=== PATIENT | female | born 1950 | race Caucasian/White ===

== ENCOUNTER 2017-02-04 05:51 | Inpatient (IN) | payer MEDICARE ==
[2017-01-21 11:52] VITALS: BP 120/80
--- NOTE | 2017-01-31 13:10 | HPE ---
DATE OF ADMISSION: 02/04/2017 CHIEF COMPLAINT: Back pain and pain radiating to both lower extremities, right greater than the left. HISTORY: This is a pleasant 66-year-old female patient with progressively worsening back pain and pain radiating to both lower extremities. She has failed to improve with physical therapy, epidural steroid injections, nonsteroidal antiinflammatory drugs (NSAIDs), activity modification. She continues have symptoms with normal day-to-day activities. She has troubles sitting, standing and also activities such as riding in a car are very difficult for her. It affects her sleep. She has elected for surgery for continued symptoms. She has consented for a right unilateral laminectomy at 3-4 and 4-5 and posterior lateral fusion at L3-4 and L4-[address] Scott[address] MRI of her lumbar spine notable for severe stenosis at 4-5, slightly to a lesser degree at 3-4. X-rays are notable for dynamic spondylolisthesis at L4-5. There is also degenerative changes at 3-4 and 4-5 and to a lesser degree at 5-1. There is a mild degenerative scoliotic curve also noted on the radiographs. Medical optimization Dr. Ho. ALLERGIES: She does have difficulties with most all tape products. 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 CURRENT MEDICATIONS: - valsartan 50 mg one tablet once per day - calcium 500 mg one tablet once per day - Flexeril 10 mg one tablet as needed - Protonix 40 mg one tablet once per day - Naproxen 500 mg as needed twice a day - Zoloft 50 mg half of a tablet once per day - over the counter vitamin D3 MEDICAL HISTORY: Includes aortic abdominal dilation at 2.8 cm, elevated lipids, anxiety, gastric reflux disease, hypertension, as well as spinal stenosis and lumbar spondylolisthesis. PAST SURGICAL HISTORY: Includes tonsils and adenoids removed, hernia repair, bladder surgery, bilateral carpal tunnel release, ulnar nerve decompression on the left. SOCIAL HISTORY: She does not smoke. She does not use alcohol. She is retired. FAMILY HISTORY: Noncontributory. REVIEW OF SYSTEMS: Denies fever or chills. Denies chest pain, shortness breath or cough. Denies difficulty breathing. Denies abdominal pain. Denies nausea or vomiting. Denies recent upper respiratory infection or urinary tract infection (UTI) symptoms. Notes persistent pain in her back, mainly down her right leg and also at times down her left leg. PHYSICAL EXAMINATION: Physical exam today reveals a well-nourished, well-developed, alert female patient. She ambulates with a slow gait. Her gait is not wide-based. She does not use assistive devices. Her mood and affect are appropriate for the situation. There is some diffuse tenderness around the lumbar spine. The skin is intact. No erythema, edema or ecchymosis. Straight leg raise testing is negative on exam. Clonus is negative. Deep tendon reflexes are 1 at the knees and trace at the ankles. Sensation is grossly intact on exam today. Neck is supple without adenopathy or jugular venous distention (JVD). LUNGS: Clear to auscultation without rales or wheeze. HEART: Regular rate and rhythm. ABDOMEN: Bowel sounds are present. CURRENT VITAL SIGNS: Weight 203 pounds, height 5 feet 11 inches, Body Mass Index (BMI) 38, temperature 97.9, pulse 88, respirations 20, blood pressure 152/90. Medical optimization completed by Dr. Ho. LABORATORY DATA: Chest x-ray: No acute cardiopulmonary process noted. EKG sinus bradycardia. Nasal cultures: Normal ameya. PT 13.7, INR 1.04, hemoglobin 14.3, glucose 91, BUN 13, creatinine 0.81, sodium 142, potassium 4.2. IMPRESSION: 1. Lumbar spinal stenosis, bilateral leg symptoms, right greater than left. 2. Spondylolisthesis of the lumbar spine. PLAN: She has consented for right unilateral laminectomy at L3-4 and L4-5 with posterolateral fusion at L3-4 and L4-5 with the use of iliac crest bone graft and donor bone graft. PEEWEE
[2017-02-04] VITALS (7 sets, daily range): BP systolic 98–126; BP diastolic 60–66; O2SAT 97
[~2017-02-04] VITALS: Ht 154.9 cm; Wt 93.3 kg
[~2017-02-04 05:51] MED LIST: ASPE10LO TOP; CALCCHW19 PO; CENTTAB PO; CHO PO; CYCL10TA PO; DIGE1CHW PO; GABA-279 PO; GLUC PO; HYDR12CA PO; LIDO5DIS41 TD; OMEGA PO; PANT40TA2 PO; SERT50TA PO; TYLE650T35 PO; VALS1TAB46 PO; VITA100067 PO; VITA500T PO
[2017-02-04] MEDS ORDERED: LR 1,000 ML IV ONE (06:15)
[2017-02-04] MEDS ORDERED: LIDOCAINE 1% MDV 20ML VIAL SQ PRN (06:15)
[2017-02-04] MEDS ORDERED: PREGABALIN 75 MG CAP(LYRICA) PO ONE (06:15)
[2017-02-04] MEDS ORDERED: PERCOCET 5MG/325MG TAB PO ONE (06:15)
[2017-02-04] MEDS ORDERED: BUPIVACAINE/EPIN 0.25% 30 ML VIAL As Ordered ONE (07:14)
[2017-02-04] MEDS ORDERED: THROMBIN SOLN 20,000 UNITS KIT As Ordered ONE (07:14)
[2017-02-04] MEDS ORDERED: BACITRACIN PWD 50,000 UNITS VIAL As Ordered ONE (07:14)
[2017-02-04] MEDS ORDERED: BACITRACIN OINT 30GM As Ordered ONE (08:06)
[2017-02-04] MEDS ORDERED: MIDAZOLAM INJ 2 MG/2 ML VIAL (J2250) As Ordered ONE (08:11)
[2017-02-04] MEDS ORDERED: fentaNYL 250 MCG/5 ML INJECTION (J3010) As Ordered ONE (08:11)
[2017-02-04] MEDS ORDERED: PHENYLEPHRINE INJ 10MG/ML VIAL (J2370) As Ordered ONE ×2 (08:11→11:27)
[2017-02-04] MEDS ORDERED: PROPOFOL 200 MG/20 ML VIAL As Ordered ONE (08:23)
[2017-02-04] MEDS ORDERED: ePHEDrine SULFATE 25 MG/5 ML(5MG/ML) SYRINGE As Ordered ONE ×2 (08:23→10:49)
[2017-02-04] MEDS ORDERED: PHENYLephrine HCL 500 MCG/5 ML (100MCG/ML) SYRINGE (J2370) As Ordered ONE (08:23)
[2017-02-04] MEDS ORDERED: GLYCOPYRROLATE INJ 0.2 MG/ML 2 ML VIAL As Ordered ONE (08:23)
[2017-02-04] MEDS ORDERED: LIDOCAINE 2% INJ 100 MG/5 ML SDV (FOR ANES.) As Ordered ONE (08:23)
[2017-02-04] MEDS ORDERED: NEOSTIGMINE 10 MG/10 ML VIAL (J2710) As Ordered ONE (08:23)
[2017-02-04] MEDS ORDERED: ROCURONIUM BROMIDE 50 MG/5 ML VIAL/SYRINGE As Ordered ONE ×2 (08:23→09:18)
[2017-02-04] MEDS ORDERED: METOCLOPRAMIDE INJ 10MG/2ML VIAL (J2765) As Ordered ONE (08:24)
[2017-02-04] MEDS ORDERED: ONDANSETRON 4MG/2ML VIAL (J2405) As Ordered ONE (08:24)
[2017-02-04] MEDS ORDERED: TRANEXAMIC ACID 100 MG/ML 10ML VIAL As Ordered ONE (09:52)
[2017-02-04] MEDS ORDERED: EPINEPHrine INJ 1 MG/ML 1ML AMP As Ordered ONE (09:53)
[2017-02-04] MEDS ORDERED: ceFAZolin 2 GM/D5W 50 ML IV BAG (J0690) As Ordered ONE (12:04)
[2017-02-04] MEDS ORDERED: VANCOMYCIN 1000 MG/20 ML VIAL (J3370) As Ordered ONE (12:04)
[2017-02-04] MEDS ORDERED: HYDROmorphone HCL 2 MG/ML 1ML VIAL (J1170) As Ordered ONE (13:16)
[2017-02-04] MEDS ORDERED: BUPIVACAINE HCL 0.5% 30 ML VIAL As Ordered ONE (14:08)
[2017-02-04] MEDS ORDERED: BUPIVACAINE LIPOSOME/PF 1.3% 20 ML VIAL (13.3MG/ML)(EXPAREL) As Ordered ONE (14:09)
--- NOTE | 2017-02-04 15:21 | REP ---
PARTIAL LUMBAR SPINE SERIES: Three views. HISTORY: Laminectomy. 2 minutes of fluoroscopy time is reported. FINDINGS: A sequence of two last image hold fluoroscopic spot radiographs of the lower lumbar spine document a transpedicular screw and interconnecting conner fusion bilaterally from L3-L5. A additional portable cross-table lateral radiograph demonstrates operative probes in the dorsal soft tissues about the L4-5 level. Signed by Laurent Montoya MD 02/04/2017 03:44 P
[2017-02-04] MEDS: D5W/0.45% SODIUM CHLORIDE 1,000 ML IV SCH (16:15)
[2017-02-04] MEDS ORDERED: LR 1,000 ML IV SCH (16:15)
[2017-02-04] MEDS ORDERED: MORPHINE 2 MG/ML 1ML SYRINGE IV PRN (16:15)
[2017-02-04] MEDS ORDERED: ONDANSETRON 4MG/2ML VIAL (J2405) IV PRN (16:15)
[2017-02-04] MEDS ORDERED: HYDROmorphone HCL 1 MG/ML SYRINGE (J1170) IV PRN ×2 (16:30)
[2017-02-04] MEDS ORDERED: PROMETHAZINE INJ 25 MG/ML VIAL (J2550) IV PRN (16:30)
[2017-02-04] MEDS: GABAPENTIN 100 MG CAP PO SCH (20:44)
[2017-02-04] MEDS: PERCOCET 5MG/325MG TAB PO PRN (20:45)
[2017-02-05 00:39] VITALS: BP 117/59
[2017-02-05] MEDS: D5W/0.45% SODIUM CHLORIDE 1,000 ML IV SCH ×3 (02:15→22:15)
[2017-02-05] MEDS: PERCOCET 5MG/325MG TAB PO PRN ×4 (02:35→19:46)
[2017-02-05 04:30] VITALS: BP 124/66
[2017-02-05] MEDS: GABAPENTIN 100 MG CAP PO SCH ×3 (09:44→20:57)
[2017-02-05] MEDS: SERTRALINE HCL 25 MG TABLET PO SCH (09:44)
[2017-02-05] MEDS: MULTIVITAMINS/MINERALS THERAP 1 TAB PO SCH (09:44)
[2017-02-05 10:00] VITALS: BP 95/47
[2017-02-05 10:55] VITALS: O2SAT 95
[2017-02-05 14:00] VITALS: BP 103/53
--- NOTE | 2017-02-05 17:33 | RO ---
DATE OF PROCEDURE: 02/04/2017 PREPROCEDURE DIAGNOSIS: Lumbar spinal stenosis, L3-4, L4-5 and lumbar spondylolisthesis L4-5 with primarily right lower extremity radicular and neurogenic claudication. POSTPROCEDURE DIAGNOSES: Lumbar spinal stenosis, L3-4, L4-5 and lumbar spondylolisthesis L4-5 with primarily right lower extremity radicular and neurogenic claudication. PROCEDURE PERFORMED: Right unilateral laminectomy L3-4-5 and posterior intertransverse lumbar fusion L3-L4-L5 and instrumentation. SURGEON: Pedro Scott MD GRAPHICS MANAGER: Darryl Moore PA-C ANESTHESIA: General. ESTIMATED BLOOD LOSS: 800 mL REPLACED: Crystalloid. COMPLICATIONS: None. SPECIFIC COMPONENTS: L3 right unilateral laminectomy for decompression of the thecal sac exiting and traversing nerve root, L4 right unilateral laminectomy for decompression of the thecal sac exiting and traversing nerve root additional level, L5 right unilateral laminectomy for decompression of the thecal sac exiting and traversing nerve root. L3-4 arthrodesis intertransverse type, L4-5 arthrodesis intertransverse type. Next was posterior segmental instrumentation L3, L4 and L5 pedicle screw instrumentation, harvest and placement of right iliac crest bone graft through a separate fascial incision, harvest and placement of local autograft for spine surgery morselized. INDICATIONS: Predominantly right lower extremity discomfort, spondylolisthesis at L4-5 and spinal stenosis at L3-4 and L4-5. The patient has elected for operative intervention. Consent reviewed in detail including a nahed discussion of the pathology involved, the procedure proposed, alternatives including doing nothing, risks including but not limited to pain, failure, infection, bleeding, blood loss, incomplete relief of symptoms, need for additional surgery, nerve injury, blood clots, and other issues. The patient agrees to proceed with surgery. COMPONENTS USED: Include K2M [place] pedicle screw instrumentation at L3, L4 and L5. a 60 mm connecting conner stem cap. The screws were 6.5 screws the appropriate length at L3 bilaterally, L4 bilaterally, L5 on the left. I used a 7.5 screw at L5 on the right. DESCRIPTION OF PROCEDURE: Identified in the holding area, site and side verified, brought to the operating room. General endotracheal anesthesia was administered. Positioned for exposure of the lumbar spine in the prone position on the Zechariah frame. Once I and the manager secondary were comfortable with the patient's positioning, she was then sterilely prepped and draped in the usual fashion. Next, line of the incision was outlined with a marking pen, infiltrated with 0.25% Marcaine with epinephrine. Time-out was accomplished. I stood initially on the patient's right side, Mr. Moore on the left side and initially a utilized 3.5 loupe magnification, however, this was changed out for the operative microscope at the appropriate stage in the procedure. Next, I made the incision with a #10 blade knife developed down through skin and subcuticular tissues to the posterior lumbar fascia. The posterior lumbar fascia was reflected off of the spinous processes of L3, L4 and L5. The dissection continued down to the L4 and L5 lamina. Next, I used the high-speed bur to drill a divot in the posterior lamina on the right side at L4 and L5 and placed a radiopaque probe in the lamina. Next, we obtained a cross-table lateral x-ray to localize our markers and confirm our levels. Next, based on this x-ray we continued dissection superiorly to expose the L3 transverse process. Next, we switched sides. Mr. Moore utilized Renzo retractors and the dissection continued over the transverse process of 3, 4 and 5 exposing them on the patient's right side. Next, I then packed the right side with a laminectomy tail, turned attention to the exposure of the left side. Soft tissue was reflected from the spinous processes, preserving the interspinous ligament on the left out over the lamina of L3, L4 and L5 and hemostasis was accomplished using bipolar cautery. Next, at this stage we again switched sides. Mr. Moore utilized Renzo retractors on the left then I finished the dissection out over the transverse processes at L3, L4 and L5 on the patient's left side. This side was packed with FloSeal and laminectomy tail for hemostasis. Hemostasis also achieved using bipolar cautery. Next, at this stage my loupe magnification removed and the operating microscope was brought in for additional portions of the procedure. Next, in this patient dissection took considerably longer time then in someone that did not have a body mass index of 38. This patient's body mass index of 38 required additional positioning time, effort and additional time and effort invested in implementing the dissection and exposure. Next, the high-speed bur using the microscope was utilized to implement a laminectomy. This is a right unilateral laminectomy that undercut the spinous processes of 3, 4 and 5, continuing inferiorly the bare area of L5, but not entirely through the lamina of 5. I did undercut the spinous process of 5 laterally extending to the medial 50% of the facet complexes, but preserving the pars interarticularis. Superiorly, did touch the inferior lamina of L2 to allow exposure of the right pedicle for palpation with the Hurd Vinay probe for screw placement later. Next, once the bony dissection was accomplished and we did collect bur milling using a AQS trap, we then elevated the remaining ligamentum flavum from the bare areas removed it using pituitaries, curettes and #2 and #3 Kerrisons. Over the horizon decompression was accomplished using the #2 and #3 Kerrisons as well at the patient's left side, especially at 3, 4 on the left side. Next, lateral recess decompression was accomplished on the right using a Hurd Vinay as well as curettes and verification using the Hurd Vinay. Next, Kerrisons were utilized to finish the right lateral recess decompression. Next, the neural foramina were able to be probed on the patient's right side at 3, 4 and 4, 5. Next, once the right unilateral laminectomy was accomplished we irrigated and placed thrombin Gelfoam in the lateral recess on the right. Next, at this stage we turned our attention to obtaining iliac crest bone graft. We switched sides and I obtained iliac crest bone graft morselized through right iliac crest through a separate fascial incision. Once the bone graft was obtained, it was protected. I sprinkled a small amount of vancomycin crystals over the bone graft and covered it. Next, we closed the iliac crest wound with thrombin Gelfoam followed by interrupted stitch over the fascial layer. Next, once this was accomplished we implemented pedicle screw placement. We began this on the patient's left side. I stood on the patient's right side, Toya Teresa assisted with Renzo retractors to expose the transverse process in the pedicles. I drilled the pedicles using the high-speed drill as the mammillary process. For this portion of the procedure I had scrubbed out, changed into lead garments, scrubbed back in. The microscope was not utilized for this portion of the procedure; it was accomplished using 3.5 loupe magnification. Next, C-arm was utilized. Next, the pedicles were drilled in the following fashion: left pedicle L5, drilled the mammillary process placed. Pedicle finder probe visualized AP plane, followed by visualized lateral plane. Probe advanced through the pedicle into the vertebral body of L5, ball tip guidewire utilized to probe the vertebral body and pedicle tract. 5.5 tap utilized to tap. Ball tip guidewire utilized to verify pedicle track along with fluoroscopy and placement of the appropriate length 6.5 screw at the left at L5. Additional levels L4 and L3 pedicles were accessed in a similar fashion including verification with fluoroscopy in the AP and lateral plane. Next, once this was accomplished, Mr. Moore retracted with the Renzo retractor exposing the transverse processes, which were decorticated using the high-speed bur and I placed iliac crest bone graft directly over the transverse processes of L4-5 and L3 followed by placement of the local graft mixed with crushed cancellus bone graft and demineralized bone matrix putty. Next, 60 mm connecting conner was placed, end caps were placed and locked into place using the torque counter torque device. 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 I did elect to place a 7.5 screw in this large osteoporotic pedicle for more stability. The right L4 and right L3 pedicles were opened, cannulated, tapped, probed and the screws measured and placed in a similar fashion, 6.5 screws at L4, 6.5 screws at L3. Next, once this was accomplished again we placed the iliac crest bone graft over the decorticated transverse processes of 3, 4 and 5 followed by placement of the local and crushed cancellus and demineralized bone matrix putty. I then placed the connecting conner end caps, which were locked with the torque counter torque device. Also we had irrigated prior to placement of bone graft. Next, vancomycin crystals sprinkled. Next, we explored the wound again inspected the thecal sac. No active bleeding was appreciated. No CSF leaks were appreciated. Next 40 mL of TXA hemostatic solution were placed within the wound after irrigation. This was allowed to stand for approximately 1 minute. Next, once this was accomplished, all counts were appreciated be correct, there was no active bleeding appreciated. Next, at the conclusion of the case approximately 60 mL of Exparel solution mixed with Marcaine and saline solution were injected in the paraspinal soft tissues as a pain control agent. This was accomplished bilaterally. Next, once this was accomplished, the wound was inspected for bleeding. No active bleeding was appreciated. Next, posterior fascia was approximated with interrupted stitch, deep dermis was approximated with interrupted stitch. Prineo dressing was utilized on skin. The patient log-rolled to hospital bed, extubated, moved to recovery room in good condition. Again, the patient's body mass index of 38 necessitated significant additional time and difficulty for the completion of this type of surgery. For further details please refer to medical record.
[2017-02-05 22:00] VITALS: BP 93/40
[2017-02-06] VITALS (7 sets, daily range): BP systolic 91–114; BP diastolic 49–64; O2SAT 94–95
[2017-02-06] MEDS: PERCOCET 5MG/325MG TAB PO PRN ×4 (01:38→21:02)
[2017-02-06] MEDS: D5W/0.45% SODIUM CHLORIDE 1,000 ML IV SCH (08:15)
[2017-02-06] MEDS: GABAPENTIN 100 MG CAP PO SCH ×3 (08:26→21:01)
[2017-02-06] MEDS: CYCLOBENZAPRINE 10 MG TAB PO PRN ×3 (08:26→21:02)
[2017-02-06] MEDS: MULTIVITAMINS/MINERALS THERAP 1 TAB PO SCH (08:26)
[2017-02-06] MEDS: SERTRALINE HCL 25 MG TABLET PO SCH (08:26)
[2017-02-06] MEDS ORDERED: NS 500 ML IV ONE (08:30)
[2017-02-06 08:32] LABS: MEAN CORPUSCULAR HEMOGLOBIN 29.4 pg (27.0-33.0); MEAN CORPUSCULAR HGB CONC 32.2 g/dl (32.0-36.5); MEAN CORPUSCULAR VOLUME 91.4 fl (80.0-96.0); PLATELET COUNT, AUTOMATED 176 10^3/uL (150-450); RED CELL DISTRIBUTION WIDTH 13.6 % (11.5-14.5); WHITE BLOOD COUNT 12.3 10^3/uL (4.0-10.0)
[2017-02-06] MEDS ORDERED: BISACODYL 10 MG SUPP PR ONE (08:45)
[2017-02-06 08:56] LABS: ANION GAP 7 MEQ/L (8-16); BLOOD UREA NITROGEN 10 MG/DL (7-18); CALCIUM LEVEL 8.3 MG/DL (8.8-10.2); CARBON DIOXIDE LEVEL 28 MEQ/L (21-32); CHLORIDE LEVEL 105 MEQ/L (98-107); CREATININE FOR GFR 0.65 MG/DL (0.55-1.02); GLOMERULAR FILTRATION RATE > 60.0 (>45); GLUCOSE, FASTING 103 MG/DL (80-110); POTASSIUM SERUM 3.7 MEQ/L (3.5-5.1); SODIUM LEVEL 140 MEQ/L (136-145)
[2017-02-06] MEDS: SENOKOT S TAB PO SCH ×2 (09:26→21:02)
[2017-02-06] MEDS: MIRALAX *UNIT DOSE* 17GM PACKET PO SCH (09:26)
[2017-02-06] MEDS: MOM 30ML SUSPENSION UDC PO SCH (09:26)
--- NOTE | 2017-02-06 11:09 | IPNPDOC ---
Subjective Date Seen The patient was seen on 02/06/17. Subjective Chief Complaint/HPI Patient seen and examined at the bedside. She is tearful and emotional this morning, as she states that she was expecting her lower back pain to be much better after her surgical operation. Does not offer any specific acute complaints at this time. Objective Physical Examination General Exam: Positive: Alert, Cooperative, Other (tearful) ENT Exam: Positive: Atraumatic, Mucous membr. moist/pink Neck Exam: Negative: JVD Chest Exam: Positive: Clear to auscultation, Normal air movement Heart Exam: Positive: Rate Normal, Normal S1, Normal S2 Abdomen Exam: Positive: Soft, Negative: Tenderness Extremity Exam: Negative: Tenderness, Swelling Skin Exam: Positive: Other skin issue (surgical incision in the lumbar area noted to be clean, dry, and intact.) Psych Exam: Positive: Oriented x 3 Assessment /Plan Plan/VTE VTE Prophylaxis Ordered?: Yes Disposition Spinal Stenosis s/p Right unilateral laminectomy L3-4-5 and posterior intertransverse lumbar fusion L3-L4-L5 and instrumentation on 02/04/17 Pain management and DVT prophylaxis as per spinal surgery Hypertension The patient's blood pressure has been running borderline low, we will hold antihypertensives at this time Normyctic Anemia Hgb level has dropped from 14.3 on 01/21 lab work to 9.6 this AM Likely a component of surgical blood loss (800 cc's as per report) and Dilutional anemia as the patient has received over 4L of IVF during hospitalization No active signs of bleeding noted We Will recheck Hgb levels in the AM Patient with no anemia related c/o chest pain, SOB, palpitations or appearance of pallor No indication for transfusion at this time We will continue to monitor GERD Continue Protonix Anxiety Continue Zoloft Morbid obesity Complicating medical care DVT prophylaxis Would consider SC Heparin/Lovenox--Will defer to surgical service VS, I&O, 24H, Fishbone Vital Signs/I&O Vital Signs Date Time Temp Pulse Resp B/P (MAP) Pulse Ox O2 Delivery O2 Flow Rate FiO2 02/06/17 09:26 18 02/06/17 08:38 Room Air 02/06/17 08:19 91/49 (63) 02/06/17 06:00 98.2 90 97 2.0 I&O- Last 24 Hours up to 6 AM 02/07/17 06:00 Intake Total 480 ml Output Total 200 ml Balance 280 ml Laboratory Data 24H LABS Laboratory Tests 2 02/06/17 08:22: Nucleated Red Blood Cells % (auto) 0.0, Anion Gap 7L, Glomerular Filtration Rate > 60.0, Blood Urea Nitrogen 10, Creatinine 0.65, Sodium Level 140, Potassium Level 3.7, Chloride Level 105, Carbon Dioxide Level 28, Calcium Level 8.3L, Magnesium Level 2.0 CBC/BMP Laboratory Tests 02/06/17 08:22 Red Blood Count 3.26 L, Mean Corpuscular Volume 91.4, Mean Corpuscular Hemoglobin 29.4, Mean Corpuscular Hemoglobin Concent 32.2, Red Cell Distribution Width 13.6, Calcium Level 8.3 L ERNESTO NEWBERRY MD Feb 06, 2017 11:09
--- NOTE | 2017-02-06 12:28 | REP ---
AP LATERAL LUMBAR SPINE: 02/06/2017. Comparison: Intraoperative image 02/04/2017. Clinical history: Status post posterior lumbar fusion L3-L5. Pedicle screws and arch bars on each side from L3-L5. A few millimeters of anterolisthesis of L4 on 5 are noted, similarly a few millimeters of anterolisthesis of L3 on 4 noted. No compression deformity in the spine. There are marginal osteophytes throughout. SI joints, sacral ala and foramina were intact. Very mild levorotation without scoliosis on the AP view. Some degenerative changes in the upper lumbar and lower thoracic spine and hips. Impression: 1. L3-L5 posterior fusion with pedicle screws and arch bars on each side and a few millimeters of anterolisthesis of L3 on L4 and L4 on L5. Signed by Dequan Walker MD 02/06/2017 01:29 P
[2017-02-06] MEDS ORDERED: SODIUM CHLORIDE 0.9% 1000 ML IV ONE (13:30)
[2017-02-06] MEDS: PANTOPRAZOLE 40MG TAB (PROTONIX) PO SCH ×2 (13:35→21:02)
[2017-02-07] MEDS: PERCOCET 5MG/325MG TAB PO PRN ×3 (02:22→20:06)
[2017-02-07 06:00] VITALS: BP 97/55
[2017-02-07 07:01] LABS: MEAN CORPUSCULAR HEMOGLOBIN 29.6 pg (27.0-33.0); MEAN CORPUSCULAR HGB CONC 32.2 g/dl (32.0-36.5); PLATELET COUNT, AUTOMATED 187 10^3/uL (150-450); RED CELL DISTRIBUTION WIDTH 13.7 % (11.5-14.5)
[2017-02-07 07:18] LABS: ANION GAP 6 MEQ/L (8-16); BLOOD UREA NITROGEN 9 MG/DL (7-18); CARBON DIOXIDE LEVEL 30 MEQ/L (21-32); CHLORIDE LEVEL 107 MEQ/L (98-107); CREATININE FOR GFR 0.64 MG/DL (0.55-1.02); GLOMERULAR FILTRATION RATE > 60.0 (>45); GLUCOSE, FASTING 99 MG/DL (80-110); POTASSIUM SERUM 3.8 MEQ/L (3.5-5.1); SODIUM LEVEL 143 MEQ/L (136-145)
[2017-02-07 07:19] LABS: CALCIUM LEVEL 8.4 MG/DL (8.8-10.2); MAGNESIUM LEVEL 2.4 MG/DL (1.8-2.4)
[2017-02-07] MEDS: SENOKOT S TAB PO SCH ×2 (08:37→20:05)
[2017-02-07] MEDS: ASPIRIN 325 MG TAB PO SCH (08:37)
[2017-02-07] MEDS: MULTIVITAMINS/MINERALS THERAP 1 TAB PO SCH (08:37)
[2017-02-07] MEDS: GABAPENTIN 100 MG CAP PO SCH ×3 (08:37→20:06)
[2017-02-07] MEDS: SERTRALINE HCL 25 MG TABLET PO SCH (08:37)
[2017-02-07] MEDS: CYCLOBENZAPRINE 10 MG TAB PO PRN ×2 (08:37→20:05)
[2017-02-07] MEDS: PANTOPRAZOLE 40MG TAB (PROTONIX) PO SCH ×2 (08:37→20:05)
[2017-02-07] MEDS: MIRALAX *UNIT DOSE* 17GM PACKET PO SCH (08:37)
[2017-02-07] MEDS: MOM 30ML SUSPENSION UDC PO SCH (08:37)
[2017-02-07] MEDS ORDERED: TRIAMCINOLONE ACETONIDE SUSP 40 MG/ML VIAL (J3301) IA ONE (09:00)
[2017-02-07] MEDS ORDERED: PERC5TAB12 PO (09:09)
[2017-02-07] MEDS ORDERED: ASPI325T PO (09:09)
[2017-02-07 14:00] VITALS: BP 121/58
--- NOTE | 2017-02-07 18:48 | IPNPDOC ---
Text Note Date of Service The patient was seen on 02/07/17. NOTE Patient seen and examined at the bedside. reported hip and LE pain. Denied sob, chest pain General Exam: Positive: Alert, Cooperative, Other (tearful) ENT Exam: Positive: Atraumatic, Mucous membr. moist/pink Neck Exam: Negative: JVD Chest Exam: Positive: Clear to auscultation, Normal air movement Heart Exam: Positive: Rate Normal, Normal S1, Normal S2 Abdomen Exam: Positive: Soft, Negative: Tenderness Extremity Exam: Negative: Tenderness, Swelling Skin Exam: Positive: Other skin issue (surgical incision in the lumbar area noted to be clean, dry, and intact.) Psych Exam: Positive: Oriented x 3 66 F h/o AAA 2.8 cm, HLD, GERD anxiety HTN spinal stenosis and lumbar spondylolisthesis admitted under ortho for right unilateral laminectomy L3-4-5 and posterior intertransverse lumbar fusion L3-L4-L5 and instrumentation on 02/04/17 Spinal Stenosis s/p Right unilateral laminectomy L3-4-5 and posterior intertransverse lumbar fusion L3-L4-L5 and instrumentation on 02/04/17 Pain management , periop as per orthoand DVT prophylaxis as per spinal surgery, activity and pt as per surgery Hypertension The patient's blood pressure has been running borderline low, we will hold antihypertensives at this time Normyctic Anemia Hgb level has dropped from 14.3 on 01/21 lab work to 9.6 this AM Likely a component of surgical blood loss (800 cc's as per report) and Dilutional anemia as the patient has received over 4L of IVF during hospitalization No active signs of bleeding noted f/u hh Patient with no anemia related c/o chest pain, SOB, palpitations or appearance of pallor No indication for transfusion at this time We will continue to monitor GERD Continue Protonix Anxiety c/w med htn hold bp med given orderline pressure Morbid obesity Complicating medical care DVT prophylaxis Would consider SC Heparin/Lovenox--Will defer to surgical service scd teds ordered as per surgery VS,Jenniffer, I+O VS, Fishfrancheskae, I+O Laboratory Tests 02/07/17 06:36 Red Blood Count 2.87 L, Mean Corpuscular Volume 92.0, Mean Corpuscular Hemoglobin 29.6, Mean Corpuscular Hemoglobin Concent 32.2, Red Cell Distribution Width 13.7, Calcium Level 8.4 L Vital Signs Date Time Temp Pulse Resp B/P (MAP) Pulse Ox O2 Delivery O2 Flow Rate FiO2 02/07/17 14:00 98.4 91 16 121/58 (79) 96 Room Air 02/07/17 07:54 2.0 FIDELINA ZAYAS MD Feb 07, 2017 18:48
[2017-02-07 20:08] VITALS: O2SAT 96
[2017-02-07 22:00] VITALS: BP 105/51
[2017-02-08] MEDS: PERCOCET 5MG/325MG TAB PO PRN ×2 (02:31→18:28)
[2017-02-08] MEDS: CYCLOBENZAPRINE 10 MG TAB PO PRN (02:31)
[2017-02-08 06:00] VITALS: BP 117/56
[2017-02-08 07:48] LABS: MEAN CORPUSCULAR HEMOGLOBIN 29.3 pg (27.0-33.0); MEAN CORPUSCULAR HGB CONC 31.7 g/dl (32.0-36.5); MEAN CORPUSCULAR VOLUME 92.4 fl (80.0-96.0); PLATELET COUNT, AUTOMATED 253 10^3/uL (150-450); RED CELL DISTRIBUTION WIDTH 13.6 % (11.5-14.5)
[2017-02-08 08:11] LABS: ANION GAP 8 MEQ/L (8-16); BLOOD UREA NITROGEN 10 MG/DL (7-18); CALCIUM LEVEL 8.2 MG/DL (8.8-10.2); CARBON DIOXIDE LEVEL 30 MEQ/L (21-32); CHLORIDE LEVEL 104 MEQ/L (98-107); CREATININE FOR GFR 0.62 MG/DL (0.55-1.02); GLOMERULAR FILTRATION RATE > 60.0 (>45); GLUCOSE, FASTING 96 MG/DL (80-110); POTASSIUM SERUM 4.2 MEQ/L (3.5-5.1); SODIUM LEVEL 142 MEQ/L (136-145)
[2017-02-08] MEDS: MIRALAX *UNIT DOSE* 17GM PACKET PO SCH (09:00)
[2017-02-08] MEDS: ASPIRIN 325 MG TAB PO SCH (09:09)
[2017-02-08] MEDS: PANTOPRAZOLE 40MG TAB (PROTONIX) PO SCH ×2 (09:09→20:56)
[2017-02-08] MEDS: GABAPENTIN 100 MG CAP PO SCH ×3 (09:09→20:56)
[2017-02-08] MEDS: SENOKOT S TAB PO SCH ×2 (09:09→20:56)
[2017-02-08] MEDS: MULTIVITAMINS/MINERALS THERAP 1 TAB PO SCH (09:09)
[2017-02-08] MEDS: SERTRALINE HCL 25 MG TABLET PO SCH (09:09)
[2017-02-08] MEDS: MOM 30ML SUSPENSION UDC PO SCH (09:09)
[2017-02-08 11:05] VITALS: O2SAT 95
[2017-02-08] MEDS ORDERED: LIDOCAINE 1% MDV 20ML VIAL As Ordered ONE (13:00)
[2017-02-08 14:00] VITALS: BP 117/61
--- NOTE | 2017-02-08 16:15 | IPNPDOC ---
Text Note Date of Service The patient was seen on 02/08/17. NOTE Patient seen and examined at the bedside. reported hip and LE pain. Denied sob, chest pain General Exam: Positive: Alert, Cooperative, Other (tearful) ENT Exam: Positive: Atraumatic, Mucous membr. moist/pink Neck Exam: Negative: JVD Chest Exam: Positive: Clear to auscultation, Normal air movement Heart Exam: Positive: Rate Normal, Normal S1, Normal S2 Abdomen Exam: Positive: Soft, Negative: Tenderness Extremity Exam: Negative: Tenderness, Swelling Skin Exam: Positive: Other skin issue (surgical incision in the lumbar area noted to be clean, dry, and intact.) Psych Exam: Positive: Oriented x 3 66 F h/o AAA 2.8 cm, HLD, GERD anxiety HTN spinal stenosis and lumbar spondylolisthesis admitted under ortho for right unilateral laminectomy L3-4-5 and posterior intertransverse lumbar fusion L3-L4-L5 and instrumentation on 02/04/17 Spinal Stenosis s/p Right unilateral laminectomy L3-4-5 and posterior intertransverse lumbar fusion L3-L4-L5 and instrumentation on 02/04/17 Pain management , periop as per orthoand DVT prophylaxis as per spinal surgery, activity and pt as per surgery Hypertension The patient's blood pressure has been running borderline low, we will hold antihypertensives at this time Normyctic Anemia, possible acute blood loss anemia 2/2 to surgery, vs dilution given IVF Hgb level has dropped from 14.3 on 01/21 lab work to 9.6 this AM Likely a component of surgical blood loss (800 cc's as per report) and Dilutional anemia as the patient has received over 4L of IVF during hospitalization No active signs of bleeding noted f/u hh Patient with no anemia related c/o chest pain, SOB, palpitations or appearance of pallor No indication for transfusion at this time We will continue to monitor GERD Continue Protonix Anxiety c/w med htn hold bp med given orderline pressure Morbid obesity Complicating medical care DVT prophylaxis Would consider SC Heparin/Lovenox--Will defer to surgical service scd teds ordered dispo: as per surgery VS,Fishbone, I+O VS, Fishbone, I+O Laboratory Tests 02/08/17 07:33 Red Blood Count 3.04 L, Mean Corpuscular Volume 92.4, Mean Corpuscular Hemoglobin 29.3, Mean Corpuscular Hemoglobin Concent 31.7 L, Red Cell Distribution Width 13.6, Calcium Level 8.2 L Vital Signs Date Time Temp Pulse Resp B/P (MAP) Pulse Ox O2 Delivery O2 Flow Rate FiO2 02/08/17 14:00 99.4 94 15 117/61 (79) 96 Nasal Cannula 2.0 I&O- Last 24 Hours up to 6 AM 02/09/17 06:00 Intake Total 470 ml Output Total 200 ml Balance 270 ml FIDELINA ZAYAS MD Feb 08, 2017 16:15
[2017-02-08 20:05] VITALS: BP 104/49
[2017-02-08 20:49] VITALS: O2SAT 94
[2017-02-09 05:00] VITALS: BP 143/76
[2017-02-09 06:52] LABS: MEAN CORPUSCULAR HEMOGLOBIN 28.8 pg (27.0-33.0); MEAN CORPUSCULAR HGB CONC 32.1 g/dl (32.0-36.5); MEAN CORPUSCULAR VOLUME 89.7 fl (80.0-96.0); PLATELET COUNT, AUTOMATED 295 10^3/uL (150-450); RED CELL DISTRIBUTION WIDTH 13.5 % (11.5-14.5); WHITE BLOOD COUNT 7.4 10^3/uL (4.0-10.0)
[2017-02-09 07:12] LABS: ANION GAP 6 MEQ/L (8-16); BLOOD UREA NITROGEN 13 MG/DL (7-18); CALCIUM LEVEL 8.9 MG/DL (8.8-10.2); CARBON DIOXIDE LEVEL 28 MEQ/L (21-32); CHLORIDE LEVEL 107 MEQ/L (98-107); CREATININE FOR GFR 0.59 MG/DL (0.55-1.02); GLOMERULAR FILTRATION RATE > 60.0 (>45); GLUCOSE, FASTING 121 MG/DL (80-110); MAGNESIUM LEVEL 2.7 MG/DL (1.8-2.4); POTASSIUM SERUM 4.4 MEQ/L (3.5-5.1); SODIUM LEVEL 141 MEQ/L (136-145)
[2017-02-09] MEDS: SENOKOT S TAB PO SCH ×2 (08:11→21:00)
[2017-02-09] MEDS: MIRALAX *UNIT DOSE* 17GM PACKET PO SCH (08:11)
[2017-02-09] MEDS: MOM 30ML SUSPENSION UDC PO SCH (08:11)
[2017-02-09] MEDS: MULTIVITAMINS/MINERALS THERAP 1 TAB PO SCH (08:23)
[2017-02-09] MEDS: ASPIRIN 325 MG TAB PO SCH (08:23)
[2017-02-09] MEDS: SERTRALINE HCL 25 MG TABLET PO SCH (08:24)
[2017-02-09] MEDS: PERCOCET 5MG/325MG TAB PO PRN ×2 (08:24→20:44)
[2017-02-09] MEDS: GABAPENTIN 100 MG CAP PO SCH ×3 (08:24→20:45)
[2017-02-09] MEDS: CYCLOBENZAPRINE 10 MG TAB PO PRN (08:24)
[2017-02-09] MEDS: PANTOPRAZOLE 40MG TAB (PROTONIX) PO SCH ×2 (08:24→20:45)
[2017-02-09] MEDS ORDERED: VALSARTAN 80 MG TAB (DIOVAN) PO SCH (09:00)
--- NOTE | 2017-02-09 10:06 | IPNPDOC ---
Text Note Date of Service The patient was seen on 02/09/17. NOTE Patient seen and examined at the bedside. reported hip and LE pain, mild improved after injection. Denied sob, chest pain General Exam: Positive: Alert, Cooperative, Other (tearful) ENT Exam: Positive: Atraumatic, Mucous membr. moist/pink Neck Exam: Negative: JVD Chest Exam: Positive: Clear to auscultation, Normal air movement Heart Exam: Positive: Rate Normal, Normal S1, Normal S2 Abdomen Exam: Positive: Soft, Negative: Tenderness Extremity Exam: Negative: Tenderness, Swelling Skin Exam: Positive: Other skin issue (surgical incision in the lumbar area noted to be clean, dry, and intact.) Psych Exam: Positive: Oriented x 3 66 F h/o AAA 2.8 cm, HLD, GERD anxiety HTN spinal stenosis and lumbar spondylolisthesis admitted under ortho for right unilateral laminectomy L3-4-5 and posterior intertransverse lumbar fusion L3-L4-L5 and instrumentation on 02/04/17 Spinal Stenosis s/p Right unilateral laminectomy L3-4-5 and posterior intertransverse lumbar fusion L3-L4-L5 and instrumentation on 02/04/17 Pain management , periop as per orthoand DVT prophylaxis as per spinal surgery, activity and pt as per surgery Hypertension restarting valsartan, monitor BP Normyctic Anemia, possible acute blood loss anemia 2/2 to surgery, vs dilution given IVF Hgb level has dropped from 14.3 on 01/21 lab work to 9.6 this AM Likely a component of surgical blood loss (800 cc's as per report) and Dilutional anemia as the patient has received over 4L of IVF during hospitalization No active signs of bleeding noted f/u hh Patient with no anemia related c/o chest pain, SOB, palpitations or appearance of pallor No indication for transfusion at this time We will continue to monitor GERD Continue Protonix Anxiety c/w med Morbid obesity Complicating medical care DVT prophylaxis Would consider SC Heparin/Lovenox--Will defer to surgical service scd teds ordered dispo: as per surgery, possible STR, ARU screen VS,Fishbone, I+O VS, Fishbone, I+O Laboratory Tests 02/09/17 06:38 Red Blood Count 3.12 L, Mean Corpuscular Volume 89.7, Mean Corpuscular Hemoglobin 28.8, Mean Corpuscular Hemoglobin Concent 32.1, Red Cell Distribution Width 13.5, Calcium Level 8.9 Vital Signs Date Time Temp Pulse Resp B/P (MAP) Pulse Ox O2 Delivery O2 Flow Rate FiO2 02/09/17 08:54 16 02/09/17 05:00 97.7 91 143/76 (98) 95 Nasal Cannula 2.0 I&O- Last 24 Hours up to 6 AM 02/10/17 06:00 Output Total 900 ml Balance -900 ml FIDELINA ZAYAS MD Feb 09, 2017 10:06
[2017-02-09 14:00] VITALS: BP 125/60
[2017-02-09] MEDS: VALSARTAN 80 MG TAB (DIOVAN) PO SCH (20:45)
[2017-02-09 22:00] VITALS: BP 119/57
[2017-02-10 06:00] VITALS: BP 134/72
[2017-02-10] MEDS: PERCOCET 5MG/325MG TAB PO PRN ×2 (06:14→20:45)
[2017-02-10 06:40] LABS: MEAN CORPUSCULAR HEMOGLOBIN 28.8 pg (27.0-33.0); MEAN CORPUSCULAR HGB CONC 31.9 g/dl (32.0-36.5); MEAN CORPUSCULAR VOLUME 90.2 fl (80.0-96.0); PLATELET COUNT, AUTOMATED 364 10^3/uL (150-450); RED CELL DISTRIBUTION WIDTH 13.6 % (11.5-14.5); WHITE BLOOD COUNT 7.7 10^3/uL (4.0-10.0)
[2017-02-10 07:04] LABS: ANION GAP 7 MEQ/L (8-16); BLOOD UREA NITROGEN 16 MG/DL (7-18); CARBON DIOXIDE LEVEL 29 MEQ/L (21-32); CHLORIDE LEVEL 107 MEQ/L (98-107); CREATININE FOR GFR 0.77 MG/DL (0.55-1.02); GLOMERULAR FILTRATION RATE > 60.0 (>45); GLUCOSE, FASTING 104 MG/DL (80-110); MAGNESIUM LEVEL 2.5 MG/DL (1.8-2.4); POTASSIUM SERUM 4.3 MEQ/L (3.5-5.1); SODIUM LEVEL 143 MEQ/L (136-145)
[2017-02-10] MEDS: MIRALAX *UNIT DOSE* 17GM PACKET PO SCH (09:00)
[2017-02-10] MEDS: MOM 30ML SUSPENSION UDC PO SCH (09:00)
[2017-02-10] MEDS: PANTOPRAZOLE 40MG TAB (PROTONIX) PO SCH ×2 (09:33→20:45)
[2017-02-10] MEDS: SERTRALINE HCL 25 MG TABLET PO SCH (09:33)
[2017-02-10] MEDS: MULTIVITAMINS/MINERALS THERAP 1 TAB PO SCH (09:33)
[2017-02-10] MEDS: ASPIRIN 325 MG TAB PO SCH (09:33)
[2017-02-10] MEDS: GABAPENTIN 100 MG CAP PO SCH ×3 (09:33→20:44)
[2017-02-10] MEDS: SENOKOT S TAB PO SCH ×2 (09:34→20:47)
--- NOTE | 2017-02-10 09:37 | IPNPDOC ---
Text Note Date of Service The patient was seen on 02/10/17. NOTE Patient seen and examined at the bedside. reported hip and LE pain improved. Denied sob, chest pain General Exam: Positive: Alert, Cooperative, Other (tearful) ENT Exam: Positive: Atraumatic, Mucous membr. moist/pink Neck Exam: Negative: JVD Chest Exam: Positive: Clear to auscultation, Normal air movement Heart Exam: Positive: Rate Normal, Normal S1, Normal S2 Abdomen Exam: Positive: Soft, Negative: Tenderness Extremity Exam: Negative: Tenderness, Swelling Skin Exam: Positive: Other skin issue (surgical incision in the lumbar area noted to be clean, dry, and intact.) Psych Exam: Positive: Oriented x 3 66 F h/o AAA 2.8 cm, HLD, GERD anxiety HTN spinal stenosis and lumbar spondylolisthesis admitted under ortho for right unilateral laminectomy L3-4-5 and posterior intertransverse lumbar fusion L3-L4-L5 and instrumentation on 02/04/17 Spinal Stenosis s/p Right unilateral laminectomy L3-4-5 and posterior intertransverse lumbar fusion L3-L4-L5 and instrumentation on 02/04/17 Pain management , periop as per orthoand DVT prophylaxis as per spinal surgery, activity and pt as per surgery Hypertension valsartan, monitor BP Normyctic Anemia, possible acute blood loss anemia 2/2 to surgery, vs dilution given IVF Hgb level has dropped from 14.3 on 01/21 lab work to 9.6 this AM Likely a component of surgical blood loss (800 cc's as per report) and Dilutional anemia as the patient has received over 4L of IVF during hospitalization No active signs of bleeding noted f/u hh Patient with no anemia related c/o chest pain, SOB, palpitations or appearance of pallor No indication for transfusion at this time We will continue to monitor GERD Continue Protonix Anxiety c/w med Morbid obesity Complicating medical care DVT prophylaxis Would consider SC Heparin/Lovenox--Will defer to surgical service scd teds ordered dispo: as per surgery, possible STR VS,Fishbone, I+O VS, Fishbone, I+O Laboratory Tests 02/10/17 06:27 Red Blood Count 3.16 L, Mean Corpuscular Volume 90.2, Mean Corpuscular Hemoglobin 28.8, Mean Corpuscular Hemoglobin Concent 31.9 L, Red Cell Distribution Width 13.6, Calcium Level 9.0 Vital Signs Date Time Temp Pulse Resp B/P (MAP) Pulse Ox O2 Delivery O2 Flow Rate FiO2 02/10/17 06:54 16 02/10/17 06:00 97.7 78 134/72 (92) 98 Room Air 02/09/17 14:00 2.0 FIDELINA ZAYAS MD Feb 10, 2017 09:37
[2017-02-10 14:00] VITALS: BP 128/71
[2017-02-10 20:46] VITALS: BP 120/72
[2017-02-10] MEDS: VALSARTAN 80 MG TAB (DIOVAN) PO SCH (20:46)
[2017-02-10 22:00] VITALS: BP 120/72
[2017-02-11 06:00] VITALS: BP 124/68
[2017-02-11 07:30] LABS: MEAN CORPUSCULAR HEMOGLOBIN 28.5 pg (27.0-33.0); MEAN CORPUSCULAR HGB CONC 31.7 g/dl (32.0-36.5); MEAN CORPUSCULAR VOLUME 89.9 fl (80.0-96.0); PLATELET COUNT, AUTOMATED 421 10^3/uL (150-450); RED CELL DISTRIBUTION WIDTH 13.6 % (11.5-14.5); WHITE BLOOD COUNT 7.7 10^3/uL (4.0-10.0)
[2017-02-11 08:01] VITALS: BP 130/68
[2017-02-11 08:02] LABS: ANION GAP 7 MEQ/L (8-16); BLOOD UREA NITROGEN 14 MG/DL (7-18); CALCIUM LEVEL 8.8 MG/DL (8.8-10.2); CARBON DIOXIDE LEVEL 28 MEQ/L (21-32); CHLORIDE LEVEL 107 MEQ/L (98-107); CREATININE FOR GFR 0.72 MG/DL (0.55-1.02); GLOMERULAR FILTRATION RATE > 60.0 (>45); GLUCOSE, FASTING 84 MG/DL (80-110); MAGNESIUM LEVEL 2.4 MG/DL (1.8-2.4); POTASSIUM SERUM 4.6 MEQ/L (3.5-5.1); SODIUM LEVEL 142 MEQ/L (136-145)
[2017-02-11] MEDS: MOM 30ML SUSPENSION UDC PO SCH (10:03)
[2017-02-11] MEDS: GABAPENTIN 100 MG CAP PO SCH (10:03)
[2017-02-11] MEDS: SENOKOT S TAB PO SCH (10:03)
[2017-02-11] MEDS: MULTIVITAMINS/MINERALS THERAP 1 TAB PO SCH (10:03)
[2017-02-11] MEDS: SERTRALINE HCL 25 MG TABLET PO SCH (10:03)
[2017-02-11] MEDS: PANTOPRAZOLE 40MG TAB (PROTONIX) PO SCH (10:03)
[2017-02-11] MEDS: ASPIRIN 325 MG TAB PO SCH (10:03)
[2017-02-11] MEDS: MIRALAX *UNIT DOSE* 17GM PACKET PO SCH (10:04)
--- NOTE | 2017-02-11 12:00 | IPNPDOC ---
Text Note Date of Service The patient was seen on 02/11/17. NOTE Patient seen and examined at the bedside. reported hip and LE pain improved. Denied sob, chest pain General Exam: Positive: Alert, Cooperative, Other (tearful) ENT Exam: Positive: Atraumatic, Mucous membr. moist/pink Neck Exam: Negative: JVD Chest Exam: Positive: Clear to auscultation, Normal air movement Heart Exam: Positive: Rate Normal, Normal S1, Normal S2 Abdomen Exam: Positive: Soft, Negative: Tenderness Extremity Exam: Negative: Tenderness, Swelling Skin Exam: Positive: Other skin issue (surgical incision in the lumbar area noted to be clean, dry, and intact.) Psych Exam: Positive: Oriented x 3 66 F h/o AAA 2.8 cm, HLD, GERD anxiety HTN spinal stenosis and lumbar spondylolisthesis admitted under ortho for right unilateral laminectomy L3-4-5 and posterior intertransverse lumbar fusion L3-L4-L5 and instrumentation on 02/04/17 Spinal Stenosis s/p Right unilateral laminectomy L3-4-5 and posterior intertransverse lumbar fusion L3-L4-L5 and instrumentation on 02/04/17 Pain management , periop as per ortho and DVT prophylaxis as per spinal surgery , activity and pt as per surgery Hypertension valsartan, monitor BP Normyctic Anemia, possible acute blood loss anemia 2/2 to surgery, vs dilution given IVF Hgb level has dropped from 14.3 on 01/21 lab work to 9.6 this AM Likely a component of surgical blood loss (800 cc's as per report) and Dilutional anemia as the patient has received over 4L of IVF during hospitalization No active signs of bleeding noted f/u hh Patient with no anemia related c/o chest pain, SOB, palpitations or appearance of pallor No indication for transfusion at this time We will continue to monitor GERD Continue Protonix Anxiety c/w med Morbid obesity Complicating medical care DVT prophylaxis Would consider SC Heparin/Lovenox--Will defer to surgical service scd teds ordered dispo: passed PT, likely Dc later today VS,Fishbone, I+O VS, Fishbone, I+O Laboratory Tests 02/11/17 07:07 Red Blood Count 3.58 L, Mean Corpuscular Volume 89.9, Mean Corpuscular Hemoglobin 28.5, Mean Corpuscular Hemoglobin Concent 31.7 L, Red Cell Distribution Width 13.6, Calcium Level 8.8 Vital Signs Date Time Temp Pulse Resp B/P (MAP) Pulse Ox O2 Delivery O2 Flow Rate FiO2 02/11/17 08:01 98.7 100 18 130/68 (88) 97 Room Air 02/09/17 14:00 2.0 I&O- Last 24 Hours up to 6 AM 02/12/17 06:00 Intake Total 360 ml Output Total 425 ml Balance -65 ml FIDELINA ZAYAS MD Feb 11, 2017 12:00
--- NOTE | 2017-02-14 16:34 | DSES ---
DATE OF ADMISSION: 02/04/2017 DATE OF DISCHARGE: 02/11/2017 ATTENDING PHYSICIAN: Dr Pedro Scott ADMITTING DIAGNOSES: 1. Lumbar spinal stenosis at L3-4 and L4-5. 2. Lumbar spondylolisthesis of L4 on L5 with primarily right lower extremity radicular symptoms and neurogenic claudication. OTHER DIAGNOSES: 1. Hypertension. 2. Gastroesophageal reflux disease. 3. Anxiety. 4. Hyperlipidemia. 5. Abdominal aortic dilation at 2.8 cm. DISCHARGE DIAGNOSES: 1. Lumbar spinal stenosis with right greater than left lower leg symptoms. 2. Spondylolisthesis of the lumbar spine, status post right unilateral laminectomy at L3-4 and L4-5 with posterolateral fusion at L3-4 and L4-5 with the use of iliac crest bone graft and donor bone graft. OPERATION PERFORMED: Right unilateral laminectomy at L3, L4, L5, and posterior intertransverse lumbar fusion at L3, L4, L5, and instrumentation. HOSPITAL COURSE: The patient underwent a right unilateral laminectomy at L3-5 and posterior intertransverse lumbar fusion at L3-5 and instrumentation. Surgery was under general anesthesia and was uneventful. Her hospital course was without complications, and she was discharged on oral pain medications. She will resume her preoperative medication and diet. She will use thromboembolic deterrent stockings for deep vein thrombosis prophylaxis. She will followup in our office in approximately 3 days for a wound check. She is encouraged to contact our office sooner if there is any increased pain, drainage, redness, fevers greater than 101 degrees, radicular symptoms, or any other concerns. Please see medical record for additional details. PEEWEE
== END 2017-02-11 12:50 | disposition home health service (06) | DRG 460 ==
LOC: M OR 05:51 → M MS5PR 16:50
PROVIDERS: ADMIT Orthopaedic Surgery; ATTEND Orthopaedic Surgery
PROC: 0QB30ZZ Excision of Left Pelvic Bone, Open Approach (ICD-10-PCS; 2017-02-04)
PROC: 0SG1071 Fusion of 2 or more Lumbar Vertebral Joints with Autologous Tissue Substitute, Posterior Approach, Posterior Column, Open Approach (ICD-10-PCS; principal; 2017-02-04 07:30)
DX: M48.061 Spinal stenosis, lumbar region without neurogenic claudication (principal); D62 Acute posthemorrhagic anemia; I10 Essential (primary) hypertension; K21.9 Gastro-esophageal reflux disease without esophagitis; E78.5 Hyperlipidemia, unspecified; I71.4 Abdominal aortic aneurysm, without rupture; Z79.899 Other long term (current) drug therapy; E66.01 Morbid (severe) obesity due to excess calories

== ENCOUNTER → 2019-01-20 | Outpatient (CLI) | payer MEDICARE ==
[~2019-01-20] MED LIST changes: +ASPECRE TOP; +ASPI-1 PO; +AUGM500T34 PO; +CHOL100029 PO; +GABA-1171 PO; -GABA-279 PO; +HYDR12.55 PO; +LOSA50TA88 PO; +NO ITAB PO; -PANT40TA2 PO; +PANT40TA3 PO; +PERC5TAB12 PO; +SERT-141 PO; -SERT50TA PO; -VALS1TAB46 PO; +VALS1TAB66 PO
--- NOTE | 2019-01-21 10:29 | ECGEPIP ---
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
== END ==
LOC: M LAB 10:26
PROVIDERS: ATTEND Orthopaedic Surgery
DX: Z01.818 Encounter for other preprocedural examination (principal); M48.02 Spinal stenosis, cervical region; M47.812 Spondylosis without myelopathy or radiculopathy, cervical region

== ENCOUNTER 2019-02-02 09:56 | Inpatient (IN) | payer MEDICARE ==
--- NOTE | 2019-01-27 14:45 | HPE ---
DATE OF ADMISSION: 02/02/2019 ATTENDING PHYSICIAN: Dr. Scott HISTORY: This is a pleasant 68-year-old female patient with progressively worsening cervical pain, radiculopathy. She has failed to improve with conservative management to include injections, rest, lifestyle modifications and therapy. She has pain with most activities that are also affecting her activities of daily living. She has elected for surgery for her continued symptoms. She has consented for C4-5, C5-6, C6-[address] Scott. X-rays of the cervical spine are notable for spinal stenosis and spinal listhesis with advanced degenerative changes. ALLERGIES: No known drug allergies. She does have skin type allergy with adhesive bandages. She gets a rash. CURRENT MEDICATIONS: - Protonix 40 mg twice a day - probiotic - multivitamin - vitamin D3 with calcium, magnesium and zinc - hydrochlorothiazide 12.5 mg - losartan 50 mg as needed basis - Flexeril 10 mg twice a day - gabapentin 100 mg twice a day - Aspercreme PAST MEDICAL HISTORY: 1. Gastroesophageal reflux disease (GERD). 2. Hypertension. 3. Anxiety. PAST SURGICAL HISTORY: 1. In [address] Ambrose. 2. Hernia repair by Dr. Loving. 3. In 2009, bilateral carpal tunnel release. 4. TVT. 5. Oophorectomy. 6. In 2012, third and fourth trigger finger release. 7. In 2016, deep vein ablation. 8. In 2014, left thumb trigger release. 9. In 2016, laminectomy and fusion of L3-4 and L4-[address] Scott. FAMILY HISTORY: Noncontributory. SOCIAL HISTORY: Social drinker. She does not use tobacco products. REVIEW OF SYSTEMS: Denies fever or chills. Denies chest pain or shortness of breath or cough. Denies difficulty breathing. Denies abdominal pain. Denies nausea or vomiting. Has persistent cervical pain with radiculopathy. Denies upper respiratory infection or urinary tract infection (UTI) symptoms. VITAL SIGNS: Height 5 feet 1 inch, weight 194.6, temperature 98. PHYSICAL EXAMINATION: Well nourished, well developed, alert female patient who walks with an antalgic gait. She does have pain with cervical flexion and extension. Examination of the C-spine, skin is intact. No erythema, edema, or ecchymosis. Tenderness over the C4-C5-C6-C7 with painful range of motion of the C-spine. Capillary refill brisk. Radial pulse palpable. Neck is supple without adenopathy or jugular venous distention (JVD). Lungs are clear to auscultation without rales or wheeze. Heart has regular rate and rhythm. Abdomen: Bowel sounds are present. Electrocardiogram (EKG) notable for sinus rhythm. Chest x-ray demonstrates mild bilateral basilar atelectasis otherwise no acute pathology. White count 7.4, red cell count 5.31, hemoglobin 15.1, hematocrit 46. Sodium 139, potassium 4.5, glucose 121, BUN 12, creatinine 1.0. Preoperative medical optimization by Dr. Real Ho has cleared this patient. Was not present for review today. IMPRESSION: 1. Cervical stenosis with radiculopathy. PLAN: Consented for a C4-5, C5-6, C6-[address] Scott.
[~2019-02-02] VITALS: Ht 157.5 cm; Wt 88.9 kg
[~2019-02-02 09:56] MED LIST changes: +GABAPENTIN 300 MG CAP PO ONE; +LR 1,000 ML IV ONE; +PERCOCET 5MG/325MG TAB PO ONE; +ceFAZolin SOD 2 GM in IV 1 EA IV ONE
[2019-02-02] MEDS ORDERED: BACITRACIN PWD 50,000 UNITS VIAL As Ordered ONE (10:30)
[2019-02-02] MEDS ORDERED: methylPREDNISolone 500 MG VIAL (J2930) As Ordered ONE (10:30)
[2019-02-02] MEDS ORDERED: THROMBIN SOLN 20,000 UNITS KIT As Ordered ONE (10:30)
[2019-02-02] MEDS ORDERED: LIDOCAINE W/EPINEPHRINE 1% 20ML VIAL As Ordered ONE ×2 (10:30→11:23)
[2019-02-02] MEDS ORDERED: fentaNYL 250 MCG/5 ML INJECTION (J3010) As Ordered ONE (10:46)
[2019-02-02] MEDS ORDERED: MIDAZOLAM INJ 2 MG/2 ML VIAL (J2250) As Ordered ONE (10:46)
[2019-02-02] MEDS ORDERED: PROPOFOL 200 MG/20 ML VIAL As Ordered ONE (15:12)
[2019-02-02] MEDS ORDERED: PHENYLEPHRINE INJ 10MG/ML VIAL (J2370) As Ordered ONE (15:12)
[2019-02-02] MEDS ORDERED: ONDANSETRON 4MG/2ML VIAL (J2405) As Ordered ONE ×2 (15:12→16:32)
[2019-02-02] MEDS ORDERED: ROCURONIUM BROMIDE 50 MG/5 ML VIAL As Ordered ONE (15:13)
[2019-02-02] MEDS ORDERED: fentaNYL 100 MCG/2 ML INJECTION (J3010) As Ordered ONE (15:13)
[2019-02-02] MEDS ORDERED: LIDOCAINE 2% INJ 100 MG/5 ML SDV (FOR ANES.) As Ordered ONE (15:13)
[2019-02-02] MEDS ORDERED: HYDROmorphone HCL 2 MG/ML 1ML VIAL (J1170) As Ordered ONE (15:57)
[2019-02-02] MEDS ORDERED: SUGAMMADEX SODIUM 500 MG/5 ML VIAL (BRIDION) As Ordered ONE (16:25)
[2019-02-02] MEDS ORDERED: dexameTHASONE 4 MG/ML 1ML VIAL (J1100) As Ordered ONE (16:33)
--- NOTE | 2019-02-02 16:50 | REP ---
Four views cervical spine: 02/02/2019. Indication: Intraoperative localization. Comparison: 12/07/2010. Findings: There are multiple intraoperative images with a localizing instrument initially identified at C4/C5 and postoperative ACDF hardware that extends from C4 to C7. The hardware appears intact and well seated. The most inferior screws at C7 are incompletely evaluated and made protrude into the C7/T1 intervertebral disc. Impression: Intraoperative localizing images as described. Please see operative report for details. Electronically Signed by Toan Rehman DO 02/02/2019 04:42 P
[2019-02-02] MEDS ORDERED: LR 1,000 ML IV SCH (17:45)
[2019-02-02] MEDS ORDERED: ONDANSETRON 4MG/2ML VIAL (J2405) IV PRN ×2 (17:45→20:00)
[2019-02-02] MEDS ORDERED: fentaNYL 100 MCG/2 ML INJECTION (J3010) IV PRN (17:45)
[2019-02-02] MEDS ORDERED: MORPHINE 10 MG/ML 1ML VIAL (J2270) IV PRN (17:45)
[2019-02-02 17:56] VITALS: BP 136/87
[2019-02-02] MEDS ORDERED: HYDROMORPHONE HCL 0.5 MG/ 0.5 ML SYRINGE (J1170 PER 1) IV PRN ×2 (18:15)
[2019-02-02] MEDS ORDERED: D5W/LR 1,000 ML IV SCH (18:15)
[2019-02-02] MEDS ORDERED: PERCOCET 5MG/325MG TAB PO PRN ×2 (18:15)
[2019-02-02 18:25] VITALS: BP 142/88
[2019-02-02 19:13] VITALS: BP 143/88
[2019-02-02] MEDS: LOSARTAN 50 MG TAB PO SCH (19:23)
[2019-02-02] MEDS: GABAPENTIN 100 MG CAP PO SCH (20:19)
[2019-02-02] MEDS: METAMUCIL (PSYLLIUM) PACKET PO SCH (20:19)
[2019-02-02] MEDS: PANTOPRAZOLE 40MG TAB (PROTONIX) PO SCH (20:19)
[2019-02-02] MEDS: ceFAZolin SOD 2 GM in IV 1 EA IV SCH (20:20)
[2019-02-02 21:00] VITALS: O2SAT 96
[2019-02-02 22:50] VITALS: BP 138/86
--- NOTE | 2019-02-03 00:39 | CR.PDOC ---
General Date of Consultation: Feb 03, 2019 Referring Provider: Pedro Scott MD Attending Physician: GERALD SPRAGUE MD Consultation REASON FOR CONSULTATION/CHIEF COMPLAINT: Perioperative management, C4-C7 ACDF HISTORY OF PRESENT ILLNESS: Coco Gutierrez is a 68 YO F with history of hypertension, GERD (s/p Greta Fundlopication), and cervical pain who underwent C4-C7 anterior cervical discectomy and fusion this afternoon by Dr. Scott. The patient reports that she had some nausea and vomiting after her surgery, but now feels well. She is not having any lightheadedness, dizziness, shortness breath, palpitations, abdominal pain, or dysuria. She is not complaining of any pain in her neck or around the surgical site. ALLERGIES: Please see below. HOME MEDICATIONS: Please see below. PAST MEDICAL HISTORY: 1. GERD status post Greta fundoplication 2. Hypertension. 3. Anxiety PAST SURGICAL HISTORY: 1. Hernia repair 2. Greta fundoplication 3. Cervical anterior discectomy and fusion 4. Bilateral carpal tunnel release 5. Tension-free vaginal tape for urinary incontinence. 6. Oophorectomy 7. , Third and fourth finger trigger release 8. Deep vein ablation 9. Left thumb trigger release 10. Laminectomy and fusion of L3-4 and L4-5, by Dr. Scott FAMILY HISTORY: Noncontributory SOCIAL HISTORY: The patient lives alone, does not smoke, is a social drinker. REVIEW OF SYSTEMS: CONSTITUTIONAL: Feels well. No fever or chills HEENT: denies vision changes, no sinus problems, denies any trouble swallowing CARDIOVASCULAR: no palpitations RESPIRATORY: Denies any shortness of breath GENITOURINARY: No dysuria MUSCULOSKELETAL: Denies any joint/muscle pain GASTROINTESTINAL: Denies abdominal pain, no nausea/vomiting/diarrhea SKIN: No new rashes or lesions NEUROLOGICAL: No loss of sensation PSYCHIATRIC: Reports normal mood, no delusions or hallucinations ENDOCRINE: No hot/cold intolerance HEMATOLOGIC/LYMPHATIC: No easy bruising, no lumps/bumps ALLERGIC/IMMUNOLOGIC: No sinus symptoms PHYSICAL EXAMINATION: VITAL SIGNS: Please see below. GENERAL APPEARANCE: Laying in bed with c-collar in place, appears stated age, no acute distress, calm, cooperative HEENT: EOMI, PERRLA, unable to examine neck due to c-collar, but patient does have slight spontaneous movement of her neck RESPIRATORY: Lungs are clear to auscultation bilaterally with no adventitious breath sounds appreciated CARDIOVASCULAR: no JVD, RRR, no murmurs/rubs/gallops ABDOMEN: Soft, nontender to palpation in all four quadrants, no masses/organomegaly EXTREMITIES: no clubbing, cyanosis or edema noted MUSCULOSKELETAL: Patient has weakness, decreased strength in her left upper extremity NEUROLOGICAL: No obvious focal deficits PSYCHIATRIC: normal mood/affect Skin: No rashes or ulcers. LN: No significant cervical or inguinal lymphadenopathy LABORATORY DATA: Please see below. ASSESSMENT/PLAN: This is a 68-year-old female postoperative day #1 status post anterior cervical discectomy and fusion of C4-C7. The hospitalist team was consulted for perioperative medical management. 1. Postoperative nausea: Likely secondary to anesthesia versus GERD. The patient no longer complains of nausea -Zofran ordered -Continue home Protonix 2. Perioperative management: -Continue Ancef. -Pain management with Dilaudid 0.2 mg IV every 3 hours as needed, Percocet -Continue home dose of Flexeril, gabapentin -Will order bowel regimen 3. History of hypertension: Patient's blood pressure is within normal limits -Continue home hydrochlorothiazide DVT ppx: Anti-embolic stockings and Sequential devices FEN: Regular diet as tolerated INTERNAL MEDICINE ATTENDING PHYSICIAN ATTESTATION: I have independently interviewed and examined the patient at the bedside, and agree with the physical findings, assessment, and management plan as documented above by my resident physician. Vital Signs/I&O Vital Signs Date Time Temp Pulse Resp B/P (MAP) Pulse Ox O2 Delivery O2 Flow Rate FiO2 02/02/19 22:50 97.8 89 18 138/86 (103) 92 Room Air 02/02/19 19:13 2.0 I&O- Last 24 Hours up to 6 AM 02/03/19 06:00 Intake Total 2560 ml Output Total 200 ml Balance 2360 ml Laboratory Data Labs 24H Laboratory Tests 2 02/03/19 00:04: CBC/BMP Allergies Coded Allergies: TAPE (Verified Allergy, Intermediate, BANDAIDS MAKE SKIN BREAK OUT, 02/06/17) Home Medications Scheduled Amoxicillin/Potassium Clav (Augmentin 500-125 Tablet) 1 Each Tablet, 500 MG PO BID, (Reported) Ascorbic Acid (Vitamin C) 500 Mg Tab, 500 MG PO DAILY, (Reported) Bacillus Coagulans (Digestive Advantage) 1 Chw Chw, 1 TAB PO DAILY, (Reported) Calcium Carb/Vitamin D3/Vit K1 (Calcium + D Soft Chewable Tab) 1 Chw Chw, 1 TAB PO DAILY, (Reported) VITAMIN D 1000 LISTED SEPARATE IS ALLL IN ONE PILL Hydrochlorothiazide (Hydrochlorothiazide) 12.5 Mg Tablet, 12.5 MG PO DAILY, (Reported) Losartan Potassium (Losartan Potassium) 50 Mg Tablet, 50 MG PO DAILY, (Reported) Multivitamin with Minerals (Multiple Vitamin) 1 Each Tablet, 1 TAB PO DAILY, (Reported) Pantoprazole Sodium (Pantoprazole Sodium) 40 Mg Tab, 40 MG PO BID, (Reported) Sertraline Hcl (Sertraline HCl) 50 Mg Tab, 25 MG PO DAILY, (Reported) Vitamin D (Vitamin D3) 1,000 Unit Tablet, 1,000 UNITS PO DAILY, (Reported) Scheduled PRN Acetaminophen (Tylenol Arthritis) 650 Mg Tab, 650 MG PO Q8H PRN for PAIN, (Reported) Cyclobenzaprine HCl (Cyclobenzaprine HCl) 10 Mg Tab, 10 MG PO TIDP PRN for MUSCLE SPASMS, #15 (Reported) Gabapentin (Gabapentin) 100 Mg Cap, 100 MG PO TIDP PRN for PAIN, (Reported) Trolamine Salicylate/Aloe Vera (Aspercreme 10% Cream) 10% Cream..g., 1 APLCT TOP BID PRN for PAIN for 14 Days, #35.4 (Reported) GME ATTESTATION GME ATTESTATION My faculty preceptor for this patient encounter was physically present during the encounter and was fully available. All aspects of the patient interview, examination, medical decision making process, and medical care plan development were reviewed and approved by the faculty preceptor. The faculty preceptor is aware and concurs with the plan as stated in the body of this note and will attest to such by his/her cosignature. HAYDEN FUENTES MD Feb 03, 2019 00:39 GERALD SPRAGUE MD Feb 03, 2019 02:14
[2019-02-03 00:43] LABS: ALBUMIN 3.2 GM/DL (3.2-5.2); ALT/SGPT 40 U/L (12-78); BILIRUBIN,TOTAL 0.6 MG/DL (0.2-1.0); BLOOD UREA NITROGEN 13 MG/DL (7-18); CALCIUM LEVEL 8.5 MG/DL (8.8-10.2); CARBON DIOXIDE LEVEL 28 MEQ/L (21-32); CHLORIDE LEVEL 104 MEQ/L (98-107); CREATININE FOR GFR 0.84 MG/DL (0.55-1.30); GLOMERULAR FILTRATION RATE > 60.0 (>39); GLUCOSE, FASTING 142 MG/DL (70-100); SODIUM LEVEL 141 MEQ/L (136-145); TOTAL PROTEIN 6.7 GM/DL (6.4-8.2)
[2019-02-03 00:47] LABS: HEMATOCRIT 41.6 % (36.0-47.0); HEMOGLOBIN 13.3 g/dl (12.0-15.5); MEAN CORPUSCULAR HEMOGLOBIN 28.6 pg (27.0-33.0); MEAN CORPUSCULAR VOLUME 89.5 fl (80.0-96.0); PLATELET COUNT, AUTOMATED 231 10^3/uL (150-450); RED BLOOD COUNT 4.65 10^6/uL (4.00-5.40); WHITE BLOOD COUNT 10.4 10^3/uL (4.0-10.0)
[2019-02-03] MEDS: ceFAZolin SOD 2 GM in IV 1 EA IV SCH (04:39)
[2019-02-03 06:00] VITALS: BP 122/69
--- NOTE | 2019-02-03 08:45 | RO ---
DATE OF PROCEDURE: 02/02/2019 PREOPERATIVE DIAGNOSES: Cervical spinal stenosis with left upper extremity radiculopathy. POSTOPERATIVE DIAGNOSES: Cervical spinal stenosis with left upper extremity radiculopathy. PROCEDURE PERFORMED: Partial corpectomy at the C5-6 level, primarily removal of the inferior 50% of the C5 vertebral body uncinate processes of C6 and posterior longitudinal ligament for decompression of the thecal sac, partial corpectomy C4-5 additional level including inferior 40% of the C4 vertebral body corpus uncinate processes of C5 and posterior longitudinal ligament, additional level partial corpectomy at C6-7 primarily the C6 corpus inferior 50% in the uncinate process of C7, endplate contouring and removal of posterior longitudinal ligament. Anterior cervical instrumentation three segments C4-5, C5-6 and C6-7. Placement of structural allograft for spine surgery C4-5, C5-6, C6-7, arthrodesis, interbody endplate preparation of C4-5, C5-6, C6-7. SURGEON: Pedro Scott MD GUARD DANCE HALL: ROSEMARIE Gusman ANESTHESIA: General endotracheal. ESTIMATED BLOOD LOSS: Less than 150 mL, replaced with crystalloid. COMPLICATIONS: No complications. COMPONENTS USED: Included DePuy Tarkio 45 mm plate, 14 mm screws x 6, 5 x 7 VG2 graft times 2, 4 x 6 VG2 graft times 1. INDICATIONS: Neck discomfort radiating to the left upper extremity, MRI evidence of significant cervical spondylosis and spinal stenosis, especially at C5-6 with spinal cord deformity but also significant change at C4-5 and C6-7. Indications for partial corpectomies include complete collapse of the disk space at all levels, very large anterior osteophyte at C6-7 along with complete collapse necessitating significant removal of the vertebral body corpus at every level; the C4-5 level and interspace, the C5-6 level and interspace, and the C6-7 as compared to a typical diskectomy, this of course required significant additional operative time. Consent reviewed in detail with the patient, including nahed discussion of the pathology involved, the procedure proposed, alternatives including doing nothing and risks including but not limited to pain, failure, infection, bleeding blood loss, incomplete relief of symptoms, swallowing trouble, paralysis, and other issues. The patient agrees to proceed. DESCRIPTION OF PROCEDURE: Identified in the holding area, site and side verified, brought to the operating room. General endotracheal anesthesia was administered. Bump was placed between shoulder blades. The shoulders were taped to the side, as well as the arms. Head halter traction 7 pounds was applied. The patient had a short, thick neck and additional time was required for positioning here. Once I and the assembling fabricator were comfortable with the patient's positioning, she was then sterilely prepped and draped in usual fashion. Next, incision was based on palpation of different landmarks around the neck, including the clavicular border, manubrial notch and the laryngeal anatomy, as well as the angle of the mandible. Next, the incision was outlined with a marking pen, infiltrated with 1% lidocaine. I made the three fingerbreadth incision in an oblique orientation. It was developed down through skin and subcuticular tissues to the platysma. Platysma was elevated, initial opening with a bipolar cautery followed by tenotomy scissor and more bipolar cautery dividing perpendicular to its fibers exposing the sternocleidomastoid and the omohyoid. Next, there is some significant fibrotic dissection to accomplished in this took clearly additional time to accomplish safely. The dissection continued rostral to the omohyoid. I identified the carotid sheath. I elevated the prevertebral fascia in several layers exposing the anterior disk osteophyte complex at the C4-5 level. Bayonet spinal needle was placed at this level and a cross-table lateral x-ray was taken to verify our location. Once this was accomplished, I marked the disk at C4-5 using the Bovie cautery with Mr. Blackmonrj assisting with S retractors and Cloward retractors to assist in exposure and protect soft tissues. This dissection continued elevating the longus coli musculature and this continued through the C5-6 and C6-7 level. At C6-7 level, there was a very large anterior osteophyte. Bipolar cautery was utilized for hemostasis. Next, once the soft tissue exposure was adequate, I utilized Loving-Pan and Leksell to further debride the anterior osteophyte at C6-7, C5-6 and C4-5. C5-6 was the most stenotic level so we began there. We placed distraction pins across C5-6, which, despite the complete vertebral body disc space collapse, was still mobile. I placed distraction pins, distracted across C5-6. I placed the shadow line retractor and retracted that way. Next, I utilized pituitaries to remove disk material, curved curettes to remove cartilaginous endplates. I utilized the oval bur to debride the inferior vertebral body corpus of C5 proximally, bur to approximately 50%. This dissection continued down to the posterior longitudinal ligament. On the C6 side, we debrided the uncinate processes, square the endplates to the posterior longitudinal ligament. I elevated the posterior longitudinal ligament using curved 4.0 curettes and removed it using #1 and 2 Kerrisons, exposing the thecal sac, which was visualized and appreciated to be decompressed. Next, irrigation was accomplished. Thrombin Gelfoam was utilized for hemostasis. Rasps were utilized. I utilized a size 4 x 6 and 5 x 7 rasp followed by 5 x 7 sound at the C5-6 level. The decompression had opened sufficient space between the vertebral corpus to install a 5 x 7 graft. A 5 x 7 graft was obtained, VG2 and implanted using the impactor. Next, once this was accomplished, the C6 pin was removed. We placed distraction pins across C4-5, placed shadow line retractor. I debrided the interspace in the same fashion, including removal of the inferior corpus of C4, about 5 mm using the oval bur, and the superior vertebral body at C5 and the uncinate processes posterior longitudinal ligament was elevated and removed using Kerrisons, exposing the thecal sac. Rasps were utilized through a size 4 x 6, 4 x 6 sound was utilized, and we installed a 4 x 6 graft. This was tamped into place. Distraction pins were removed. Holes plugged with wax. I then utilized the oval bur to further contour the anterior column to later receive the plate. Next, I then moved the shadow line retractor to the C6-7 level, exposed C6-7, distraction pins across C6-7 were placed. Next, the pituitaries were utilized to remove some anterior disk material at C6-7 with distraction. The disk space only opened about 2 mm but clearly the C6-7 level was actually mobile. Here, I utilized the oval bur to bur through the calcified disk space and removing the inferior corpus of C6 to a significant degree, and even the superior corpus of C7 to a significant degree down to the uncinate processes at C6-7 superiorly, about 4 mm of the C6 corpus of the bur width down to the posterior longitudinal ligament, posterior longitudinal ligament elevated using curettes and removed using #1 and 2 Kerrisons. Next, irrigation was accomplished. Rasps were utilized to further contour vertebral endplates and a trial for a 5 x 7 was applied followed by application of the 5 x 7 graft. Next, distraction pins were then able to be removed. Irrigation was accomplished. Mr. Moore helped expose anterior vertebral column and I utilized oval bur to further contour anterior vertebral bodies. Next, once this was accomplished, I applied the size 45 mm Tarkio plate and that seemed to fit appropriately. I drilled and placed screws at all three levels; C4, C5, C6 and the C7 level. The 14 mm screws were then locked into place by engaging the locking device. Next, once this was accomplished, irrigation was accomplished. Several cross-table lateral x-rays were taken to verify plate and screw placement. This was necessary because of the patient's large neck body habitus. Once this was accomplished, we inspected for bleeding. No active bleeding was appreciated. Next, the platysma was reapproximated with interrupted stitch, deep dermis with interrupted stitch. Dermabond utilized on skin. Next, the Nottingham collar was applied. The patient was extubated, moved to the hospital bed moving all four extremities. For further details please refer to medical record.
[2019-02-03] MEDS: PANTOPRAZOLE 40MG TAB (PROTONIX) PO SCH ×2 (10:01→20:24)
[2019-02-03] MEDS: METAMUCIL (PSYLLIUM) PACKET PO SCH ×2 (10:01→20:24)
[2019-02-03] MEDS: LOSARTAN 50 MG TAB PO SCH (10:03)
[2019-02-03] MEDS: GABAPENTIN 100 MG CAP PO SCH ×3 (10:04→20:24)
[2019-02-03] MEDS: hydroCHLOROthiazide 12.5 MG CAPSULE PO SCH (10:04)
[2019-02-03] MEDS: SENOKOT S TAB PO SCH (10:04)
[2019-02-03 10:10] VITALS: BP 123/68
--- NOTE | 2019-02-03 11:43 | IPNPDOC ---
Date Seen The patient was seen on 02/03/19. Progress Note SUBJECTIVE: This is a 68-year-old female postoperative day #1 status post anterior cervical discectomy and fusion of C4-C7. The hospitalist team was consulted for perioperative medical management. Patient reports overall she is feeling well. She did have some nausea and vomiting yesterday evening, which has resolved. She states she still has a somewhat decreased appetite but is able to eat without nausea or vomiting. She states her pain from the operation is well-controlled. She does report some right-sided flank and back pain which she thinks is related to lying straight and bed with the neck collar on. She does have relief of the pain when she sits up straight in the chair. She denies any difficulty urinating. She is passing gas but denies having any bowel movements since her operation. Patient denies lightheadedness, dizziness, shortness breath, palpitations, abdominal pain, or d ysuria. OBJECTIVE PHYSICAL EXAMINATION: VITAL SIGNS: Please see below. GENERAL: Alert, comfortable, in no acute distress, lying comfortably in bed HEENT: Normocephalic, atraumatic, PERRLA, EOMI, moist mucous membranes NECK: Trachea midline, no lymphadenopathy, no JVD, surgical scar present which a ppears clean and intact CARDIOVASCULAR: Regular rate and rhythm, normal S1 and S2. No murmurs, rubs, or gallops RESPIRATORY: Clear to auscultation bilaterally with equal air entry bilaterally. No wheezing, rhonchi, or rales. ABDOMEN: Soft, nontender, nondistended, bowel sounds present, no masses or hepatosplenomegaly appreciated EXTREMITIES: No cyanosis or edema. Pulses 2+/4 in bilateral upper and lower extremities SKIN: [place], warm, dry, surgical scar present on the anterior neck which appears clean and intact NEUROLOGIC: Alert and oriented 3 to person, place and time. Cranial nerves 2-12 grossly intact. Decreased strength in the left upper extremity, otherwise no focal deficits appreciated PSYCHIATRIC: Mood and affect appropriate LABORATORY DATA, IMAGING STUDIES, MICROBIOLOGY: Please see below. ASSESSMENT AND PLAN: 68-year-old female postoperative day #1 status post anterior cervical discectomy and fusion of C4-C7. The hospitalist team was consulted for perioperative medical management. 1. Postoperative nausea: Likely secondary to anesthesia versus GERD. The patient no longer complains of nausea -Zofran PRN -Continue home Protonix 2. Perioperative management: -Continue Ancef. -Pain management with Dilaudid 0.2 mg IV every 3 hours as needed, Percocet -Continue home dose of Flexeril, gabapentin -bowel regimen with Sennakot S and metamucil BID 3. History of hypertension: -BP stable -Continue home hydrochlorothiazide and losartan 4. History of oral cold sores with possibility of new lesion prodrome - Patient reports feeling of new onset lesions at this time - Will start Valacyclovir for 7 day course DVT prophylaxis: TEDs and SCDs FEN: Regular diet as tolerated VS, I&O, 24H, Fishbone Vital Signs/I&O Vital Signs Date Time Temp Pulse Resp B/P (MAP) Pulse Ox O2 Delivery O2 Flow Rate FiO2 02/03/19 10:03 123/68 02/03/19 06:00 97.8 92 18 95 Room Air 02/02/19 19:13 2.0 I&O- Last 24 Hours up to 6 AM 02/03/19 06:00 Intake Total 2810 ml Output Total 201 ml Balance 2609 ml Laboratory Data 24H LABS Laboratory Tests 2 02/03/19 00:04: Nucleated Red Blood Cells % (auto) 0.0, Anion Gap 9, Glomerular Filtration Rate > 60.0, Calcium Level 8.5L, Total Bilirubin 0.6, Aspartate Amino Transf (AST/ SGOT) 27, Alanine Aminotransferase (ALT/SGPT) 40, Alkaline Phosphatase 79, Total Protein 6.7, Albumin 3.2, Albumin/Globulin Ratio 0.91L CBC/BMP Laboratory Tests 02/03/19 00:04 GME ATTESTATION GME ATTESTATION My faculty preceptor for this patient encounter was physically present during the encounter and was fully available. All aspects of the patient interview, examination, medical decision making process, and medical care plan development were reviewed and approved by the faculty preceptor. The faculty preceptor is aware and concurs with the plan as stated in the body of this note and will attest to such by his/her cosignature. ATTENDING NOTE I, Rachel Rodriguez, have independently examined this patient and performed my own physical exam, as well as reviewed the documentation and edited where necessary. I have discussed in detail with the resident / student the findings and plan of treatment as documented by the resident / student and edited their note. I agree with their findings and treatment plan and have edited their documentation. I will continue to follow the patient during this hospital stay. TRINI OLMSTEAD PGY-1 Feb 03, 2019 11:43 RACHEL RODRIGUEZ MD Feb 03, 2019 14:51
[2019-02-03 14:00] VITALS: BP 122/64
[2019-02-03] MEDS: CYCLOBENZAPRINE 10 MG TAB PO PRN (20:24)
[2019-02-03] MEDS: valACYclovir HCL 500 MG TAB PO SCH (20:24)
[2019-02-03 22:00] VITALS: BP 113/66
[2019-02-04] MEDS: CYCLOBENZAPRINE 10 MG TAB PO PRN (05:59)
[2019-02-04 06:00] VITALS: BP 121/70
[2019-02-04] MEDS ORDERED: ULTR50TA8 PO (08:05)
[2019-02-04] MEDS: METAMUCIL (PSYLLIUM) PACKET PO SCH (08:08)
[2019-02-04] MEDS: SENOKOT S TAB PO SCH (08:09)
[2019-02-04] MEDS: valACYclovir HCL 500 MG TAB PO SCH (08:09)
[2019-02-04] MEDS: GABAPENTIN 100 MG CAP PO SCH (08:09)
[2019-02-04] MEDS: hydroCHLOROthiazide 12.5 MG CAPSULE PO SCH (08:09)
[2019-02-04] MEDS: PANTOPRAZOLE 40MG TAB (PROTONIX) PO SCH (08:09)
[2019-02-04 08:12] VITALS: BP 137/76
[2019-02-04] MEDS: LOSARTAN 50 MG TAB PO SCH (08:12)
[2019-02-04] MEDS ORDERED: ACETAMINOPHEN 500 MG TAB PO PRN (08:30)
[2019-02-04] MEDS ORDERED: traMADol 50 MG TAB PO PRN (09:00)
[2019-02-04] MEDS ORDERED: VALA500T5 PO (09:55)
--- NOTE | 2019-02-04 10:04 | IPNPDOC ---
Date Seen The patient was seen on 02/04/19. Progress Note SUBJECTIVE: This is a 68-year-old female postoperative day #2 status post anterior cervical discectomy and fusion of C4-C7. The hospitalist team was con sulted for perioperative medical management. Patient reports overall she is feeling well. She states the pain in her neck started to bother her more last night and she had a difficult time sleeping last night. She states she does not want to take the Percocet because that is what made her vomit. She prefers to take Tylenol along with the gabapentin and Flexeril. She states this worked well for her after her low back surgery. She denies any difficulty urinating. She continues to pass gas, but denies having a BM since the surgery. Patient denies lightheadedness, dizziness, shortness breath, palpitations, abdominal pain, or dysuria. OBJECTIVE PHYSICAL EXAMINATION: VITAL SIGNS: Please see below. GENERAL: Alert, comfortable, in no acute distress, lying comfortably in bed HEENT: Normocephalic, atraumatic, PERRLA, EOMI, moist mucous membranes NECK: Trachea midline, no lymphadenopathy, no JVD, surgical scar present which appears clean and intact CARDIOVASCULAR: Regular rate and rhythm, normal S1 and S2. No murmurs, rubs, or gallops RESPIRATORY: Clear to auscultation bilaterally with equal air entry bilaterally. No wheezing, rhonchi, or rales. ABDOMEN: Soft, nontender, nondistended, bowel sounds present, no masses or hepatosplenomegaly appreciated EXTREMITIES: No cyanosis or edema. Pulses 2+/4 in bilateral upper and lower extremities SKIN: Paint, warm, dry, surgical scar present on the anterior neck which appears clean and intact NEUROLOGIC: Alert and oriented 3 to person, place and time. Cranial nerves 2-12 grossly intact. Decreased strength in the left upper extremity, otherwise no focal deficits appreciated PSYCHIATRIC: Mood and affect appropriate LABORATORY DATA, IMAGING STUDIES, MICROBIOLOGY: Please see below. ASSESSMENT AND PLAN: 68-year-old female postoperative day #2 status post anterior cervical discectomy and fusion of C4-C7. The hospitalist team was consulted for perioperative medical management. 1. Postoperative nausea: Likely secondary to anesthesia versus GERD. The patient no longer complains of nausea -Zofran PRN -Continue home Protonix 2. Perioperative management: -Continue Ancef. -Pain management with Tramadol and tylenol as needed, pt prefers not to take Percocet. -Continue home dose of Flexeril, gabapentin -bowel regimen with Sennakot S and metamucil BID 3. History of hypertension: -BP stable -Continue home hydrochlorothiazide and losartan 4. History of oral cold sores with possibility of new lesion prodrome - Continue Valacyclovir for 7 day course DVT prophylaxis: TEDs and SCDs FEN: Regular diet as tolerated VS, I&O, 24H, Fishbone Vital Signs/I&O Vital Signs Date Time Temp Pulse Resp B/P (MAP) Pulse Ox O2 Delivery O2 Flow Rate FiO2 02/04/19 08:12 137/76 02/04/19 06:00 98.2 77 18 95 Room Air 02/02/19 19:13 2.0 I&O- Last 24 Hours up to 6 AM 02/04/19 06:00 Intake Total 1620 ml Output Total 1575 ml Balance 45 ml GME ATTESTATION GME ATTESTATION My faculty preceptor for this patient encounter was physically present during the encounter and was fully available. All aspects of the patient interview, examination, medical decision making process, and medical care plan development were reviewed and approved by the faculty preceptor. The faculty preceptor is aware and concurs with the plan as stated in the body of this note and will attest to such by his/her cosignature. ATTENDING NOTE I, Rachel Rodriguez, have independently examined this patient and performed my own physical exam, as well as reviewed the documentation and edited where necessary. I have discussed in detail with the resident / student the findings and plan of treatment as documented by the resident / student and edited their note. I agree with their findings and treatment plan and have edited their documentation. I will continue to follow the patient during this hospital stay. TRINI OLMSTEAD PGY-1 Feb 04, 2019 10:04 RACHEL RODRIGUEZ MD Feb 04, 2019 12:58
--- NOTE | 2019-02-06 08:58 | DSES ---
DATE OF ADMISSION: 02/02/2019 DATE OF DISCHARGE: 02/04/2019 HISTORY OF PRESENT ILLNESS: Symptomatic cervical spinal stenosis with left upper extremity radiculopathy. POSTOPERATIVE DIAGNOSIS: Status post cervical decompression and fusion. PROCEDURE PERFORMED: Partial corpectomy at C5-C6 level, primary removal of the inferior 50% of the C5 vertebral body uncinate processes of C6 and posterior longitudinal ligament for decompression of thecal sac, partial corpectomy C4-5, additional level including inferior 40% of the C4 vertebral body corpus uncinate processes of C5 and posterior longitudinal ligament, additional level partial corpectomy at C6-7 primarily with the C6 corpus inferior, 50% knee uncinate process of C6-7, endplate contouring removal of posterior longitudinal ligament. Anterior cervical instrumentation three segments, C4-5, C5-6 and C6-7. Placement of structural allograft for spine surgery C4-5, C5-6, C6-7, arthrodesis, interbody endplate preparation of C4-5, C5-6 and C7. The patient underwent the above procedure uneventfully and tolerated it well. This was performed under general anesthesia. Our hospital team felt the patient to be ready for discharge on 2018 with the following instructions. Percocet p.r.n. pain, diet is regular, cervical collar full time staff interpreter, no lifting or carrying. Dressing change in 4-7 days time. [facility]up [facility] for [facility] check. This will be in 7-12 days time, sooner with increased pain, drainage, numbness, tingling, weakness in the upper or lower extremities, fever greater than 101 or any further concerns. PEEWEE
== END 2019-02-04 12:00 | disposition home or self-care (01) | DRG 473 ==
LOC: M OR 09:56 → M MS5PR 17:50
PROVIDERS: ADMIT Orthopaedic Surgery; ATTEND Orthopaedic Surgery
PROC: 0RG20A0 Fusion of 2 or more Cervical Vertebral Joints with Interbody Fusion Device, Anterior Approach, Anterior Column, Open Approach (ICD-10-PCS; 2019-02-02)
PROC: 0RB30ZZ Excision of Cervical Vertebral Disc, Open Approach (ICD-10-PCS; 2019-02-02)
PROC: 0RH104Z Insertion of Internal Fixation Device into Cervical Vertebral Joint, Open Approach (ICD-10-PCS; 2019-02-02)
PROC: 0RG2070 Fusion of 2 or more Cervical Vertebral Joints with Autologous Tissue Substitute, Anterior Approach, Anterior Column, Open Approach (ICD-10-PCS; principal; 2019-02-02 12:25)
DX: M48.02 Spinal stenosis, cervical region (principal); M54.12 Radiculopathy, cervical region; Z79.899 Other long term (current) drug therapy; K21.9 Gastro-esophageal reflux disease without esophagitis; I10 Essential (primary) hypertension; F41.9 Anxiety disorder, unspecified; R11.0 Nausea; K13.79 Other lesions of oral mucosa

== ENCOUNTER → 2019-06-02 | Outpatient (CLI) | payer MEDICARE ==
[~2019-06-02] MED LIST changes: -GABAPENTIN 300 MG CAP PO ONE; -LR 1,000 ML IV ONE; -PERCOCET 5MG/325MG TAB PO ONE; +ULTR50TA8 PO; +VALA500T5 PO; -ceFAZolin SOD 2 GM in IV 1 EA IV ONE
--- NOTE | 2019-06-02 13:44 | REPVR ---
PROCEDURE INFORMATION: Exam: CT Left Upper Extremity Without Contrast, Shoulder Exam date and time: 06/02/2019 12:30 PM Age: 69 years old Clinical indication: Condition or disease; Rotator cuff rupture or tear; Severity not specified; Left; Additional info: Strain of musc/tend rotator cuff lt shoulder TECHNIQUE: Imaging protocol: CT of the Left upper extremity without contrast was performed. Exam focused on the shoulder. Radiation optimization: All CT scans at this facility use at least one of these dose optimization techniques: automated exposure control; mA and/or kV adjustment per patient size (includes targeted exams where dose is matched to clinical indication); or iterative reconstruction. COMPARISON: No relevant prior studies available. FINDINGS: Bones/joints: No acute fracture or dislocation is identified. There is mild to moderate acromioclavicular arthrosis. Very mild osteophyte formation and degenerative cystic change is present about the glenohumeral joint. There is mild productive change along the greater tuberosity. The humeral head is somewhat high riding in relation to the glenoid, nearly articulating with the acromion, which could relate to rotator cuff abnormality. There is a 3 x 4 mm calcification posterior to the humeral head, could represent an osteochondral body. The tendons of the rotator cuff are not well evaluated on CT. Degenerative changes involve the spine. There is hardware in the cervical spine. Soft tissues: The soft tissues appear grossly unremarkable. Vasculature: Atherosclerotic vascular calcifications are noted. Coronary artery calcifications are noted. Lymph nodes: Some mildly prominent left axillary lymph nodes measure up to 12 mm short axis. Lungs: Minor dependent atelectasis involves the left lung. Other findings: There is calcification of the mitral valve and annulus, and of the aortic valve. IMPRESSION: 1. Degenerative changes as described. 2. Humeral head somewhat high riding in relation to the glenoid, nearly articulating with the acromion, which could relate to rotator cuff abnormality. The tendons of the cuff are not well evaluated on CT, and MRI is suggested in this regard. 3. Mildly prominent left axillary lymph nodes measuring up to 12 mm short axis. Correlate clinically. Electronically signed by: Darryl Donaldson On 06/02/2019 13:44:22 PM
== END ==
LOC: M RAD 12:10
PROVIDERS: ATTEND Orthopaedic Surgery Sports Medicine
DX: S46.012D Strain of muscle(s) and tendon(s) of the rotator cuff of left shoulder, subsequent encounter (principal); X58.XXXD Exposure to other specified factors, subsequent encounter

== ENCOUNTER 2019-10-09 12:03 | Emergency (ER) | payer MEDICARE ==
[~2019-10-09] VITALS: Ht 157.5 cm; Wt 84.0 kg
[~2019-10-09 12:03] MED LIST changes: +ACET650T61 PO; +CYCL-707 PO; -CYCL10TA PO; +PANT40TA29 PO; -PANT40TA3 PO; -TYLE650T35 PO; +VITA-243 PO; -VITA500T PO
[2019-10-09 13:02] LABS: BASO % 0.7 % (0.0-1.0); EOS # 0.1 10^3/uL (0.0-0.5); EOS % 1.2 % (0.0-3.0); HEMATOCRIT 42.4 % (36.0-47.0); HEMOGLOBIN 13.7 g/dl (12.0-15.5); LYMPH # 2.2 10^3/uL (1.5-5.0); LYMPH % 36.4 % (24.0-44.0); MEAN CORPUSCULAR HEMOGLOBIN 28.7 pg (27.0-33.0); MEAN CORPUSCULAR HGB CONC 32.3 g/dl (32.0-36.5); MEAN CORPUSCULAR VOLUME 88.7 fl (80.0-96.0); MONO # 0.4 10^3/uL (0.0-0.8); NEUTROPHILS # 3.3 10^3/uL (1.5-8.5); NEUTROPHILS % 54.5 % (36.0-66.0); PLATELET COUNT, AUTOMATED 247 10^3/uL (150-450); RED BLOOD COUNT 4.78 10^6/uL (4.00-5.40)
[2019-10-09] MEDS ORDERED: OXYC1TAB23 PO (13:13)
[2019-10-09] MEDS ORDERED: DULO1CAP5 PO (13:13)
[2019-10-09] MEDS ORDERED: CLAR5TAB7 PO (13:13)
[2019-10-09] MEDS ORDERED: KETOROLAC 30 MG/ML 1ML VIAL IV ONE (13:15)
[2019-10-09] MEDS ORDERED: MORPHINE 4 MG/ML 1ML VIAL/SYRINGE (J2270) IV ONE (13:15)
[2019-10-09 13:23] LABS: BILIRUBIN,DIRECT 0.2 MG/DL (0.0-0.2); BILIRUBIN,TOTAL 0.7 MG/DL (0.2-1.0); TOTAL PROTEIN 7.5 GM/DL (6.4-8.2)
[2019-10-09] MEDS ORDERED: TRAM50TA2 PO ×2 (16:04→16:29)
[2019-10-09 16:35] VITALS: BP 138/69
--- NOTE | 2019-10-10 08:03 | REP ---
CT ABDOMEN/PELVIS WITHOUT CONTRAST: CT abdomen/pelvis performed without oral or IV contrast. Sagittal and coronal reconstruction images are performed. Visualized lung bases demonstrate fibrotic changes. The liver and gallbladder are grossly unremarkable. Spleen is normal in size. Adrenal glands demonstrate no mass. Pancreas demonstrates no gross abnormality. There is a small cyst of the upper pole of the right kidney. There is no renal, ureteral, or bladder calculus and no hydroureteronephrosis. There is atherosclerotic calcification of the abdominal aorta without aneurysm. No adenopathy is seen. There is no free air or free fluid. There is no bowel wall thickening. The appendix is normal. No pelvic mass is seen. Urinary bladder is mildly distended and grossly unremarkable. There is evidence of prior lumbar fusion with rods and screws bridging posterior aspects of L3 through L5. There are diffuse degenerative changes of the spine. IMPRESSION: No acute abnormalities detected. No evidence of appendicitis. No renal or ureteral calculus and no hydroureteronephrosis. No free air or free fluid. No bowel obstruction. Electronically Signed by Reilly Batista MD 10/11/2019 11:23 P
== END 2019-10-09 16:45 | disposition home or self-care (01) ==
LOC: M ED 12:03
DX: R10.9 Unspecified abdominal pain (principal); I10 Essential (primary) hypertension; E78.5 Hyperlipidemia, unspecified; J45.909 Unspecified asthma, uncomplicated; K21.9 Gastro-esophageal reflux disease without esophagitis; Z79.1 Long term (current) use of non-steroidal anti-inflammatories (NSAID); Z79.891 Long term (current) use of opiate analgesic; Z79.899 Other long term (current) drug therapy; Z91.048 Other nonmedicinal substance allergy status
CPT/HCPCS: 74176; 80047; 80076; 81001; 83690; 85025; 96374; 99284; J1885

== ENCOUNTER → 2019-11-01 | Outpatient (CLI) | payer MEDICARE ==
[~2019-11-01] MED LIST changes: +CLAR5TAB7 PO; +DULO1CAP5 PO; +OXYC1TAB23 PO; +TRAM50TA2 PO
--- NOTE | 2019-12-12 15:11 | ECGEPIP ---
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
[2019-12-18 12:18] LABS: ALBUMIN 4.2 GM/DL (3.2-5.2); ALT/SGPT 37 U/L (12-78); BILIRUBIN,TOTAL 0.9 MG/DL (0.2-1.0); BLOOD UREA NITROGEN 11 MG/DL (7-18); CALCIUM LEVEL 9.3 MG/DL (8.8-10.2); CARBON DIOXIDE LEVEL 28 MEQ/L (21-32); CHLORIDE LEVEL 108 MEQ/L (98-107); GLOMERULAR FILTRATION RATE > 60.0 (>39); GLUCOSE, FASTING 96 MG/DL (70-100); POTASSIUM SERUM 4.2 MEQ/L (3.5-5.1); SODIUM LEVEL 140 MEQ/L (136-145); TOTAL PROTEIN 7.5 GM/DL (6.4-8.2)
[2019-12-18 18:43] LABS: HEMATOCRIT 43.9 % (36.0-47.0); HEMOGLOBIN 13.9 g/dl (12.0-15.5); INR 1.06; MEAN CORPUSCULAR HEMOGLOBIN 28.1 pg (27.0-33.0); MEAN CORPUSCULAR HGB CONC 31.7 g/dl (32.0-36.5); MEAN CORPUSCULAR VOLUME 88.9 fl (80.0-96.0); PLATELET COUNT, AUTOMATED 260 10^3/uL (150-450); PROTHROMBIN TIME 14.1 SECONDS (12.5-14.3); RED BLOOD COUNT 4.94 10^6/uL (4.00-5.40); WHITE BLOOD COUNT 6.4 10^3/uL (4.0-10.0)
[2019-12-18 18:44] LABS: APPEARANCE, URINE CLEAR (CLEAR); ERYTHROCYTE SEDIMENTATION RATE 5 mm/hr (0-30)
[2019-12-18 18:45] LABS: BILIRUBIN, URINE AUTO NEGATIVE (NEGATIVE); BLOOD, URINE BLOOD NEGATIVE (NEGATIVE); COLOR, URINE STRAW (YELLOW); GLUCOSE, URINE (UA) AUTO NEGATIVE (NEGATIVE); KETONE, URINE AUTO NEGATIVE (NEGATIVE); LEUKOCYTE ESTERASE, URINE AUTO NEGATIVE (NEGATIVE); NITRITE, URINE AUTO NEGATIVE (NEGATIVE); PROTEIN, URINE AUTO NEGATIVE (NEGATIVE); SPECIFIC GRAVITY URINE AUTO 1.003 (1.002-1.035); UROBILINOGEN, URINE AUTO 0.2 mg/dL (0.0-2.0)
== END ==
LOC: M LAB 11:30
PROVIDERS: ATTEND Orthopaedic Surgery Sports Medicine
DX: Z01.818 Encounter for other preprocedural examination (principal); M19.012 Primary osteoarthritis, left shoulder

== ENCOUNTER 2019-11-06 10:03 | Inpatient (IN) | payer MEDICARE ==
[~2019-11-06 10:03] MED LIST changes: +ACETAMINOPHEN 1000MG 100ML IV BTL (OFIRMEV) (J0131 PER 10MG) ONE; +BUPIVACAINE LIPOSOME/PF 1.3% 20ML VIAL (13.3MG/ML)(EXPAREL)(C9290 PER1MG) ONE; +LIDOCAINE 2% 100MG/5ML SDV (FOR ANES.) ONE; +METOCLOPRAMIDE INJ 10MG/2ML VIAL (J2765 PER 1) ONE; +MIDAZOLAM INJ 2MG/2ML VIAL (J2250 PER 1MG) ONE; +ONDANSETRON 4MG/2ML VIAL ONE; +PHENYLEPHRINE 10MG/ML 1ML VIAL (J2370 PER 1) ONE; +PHENYLephrine HCL 500 MCG/5 ML (100MCG/ML) SYRINGE (J2370) ONE; +ROCURONIUM BROMIDE 50 MG/5 ML VIAL ONE; +SUGAMMADEX SODIUM 500 MG/5 ML VIAL (BRIDION) ONE; +TRANEXAMIC ACID 100 MG/ML 10ML VIAL ONE; +ceFAZolin 2 GM/D5W 50 ML IV BAG (J0690 PER 500MG) ONE; +dexameTHASONE 4 MG/ML 1ML VIAL (J1100 PER 1MG) ONE; +ePHEDrine SULFATE 25 MG/5 ML(5MG/ML) SYRINGE ONE; +fentaNYL 100 MCG/2 ML INJECTION (J3010) ONE; +fentaNYL 250 MCG/5 ML INJECTION (J3010) ONE; +propofoL 200 MG/20 ML VIAL ONE
[2019-11-06] MEDS ORDERED: dexameTHASONE 10MG/1ML VIAL PRES.FREE (J1100 PER 1MG) ONE (13:00)
[2019-11-06] MEDS ORDERED: ROPIvacaine 0.5% 30ML INJECTION (J2795 PER 1MG) ONE (13:00)
[2019-11-06] MEDS ORDERED: LIDOCAINE 1% MDV 20ML VIAL ONE (13:00)
[2019-11-06] MEDS ORDERED: IBUPROFEN 400 MG TAB ONE (21:27)
[2019-11-06] MEDS ORDERED: ACETAMINOPHEN TAB 650MG DOSE (2X325MG) ONE (21:27)
[2019-11-07] MEDS ORDERED: ACETAMINOPHEN TAB 650MG DOSE (2X325MG) ONE ×2 (02:51→05:53)
[2019-11-07] MEDS ORDERED: IBUPROFEN 400 MG TAB ONE ×2 (02:51→08:24)
[2019-11-07] MEDS ORDERED: ceFAZolin 2 GM/D5W 50 ML IV BAG (J0690 PER 500MG) ONE (08:24)
--- NOTE | 2020-01-07 11:13 | RO ---
DATE OF OPERATION: 11/06/2019 PREOPERATIVE DIAGNOSIS: Left shoulder rotator cuff tear arthropathy. POSTOPERATIVE DIAGNOSIS: Left shoulder rotator cuff tear arthropathy. PLANNED PROCEDURE: Left reverse total shoulder arthroplasty. PROCEDURE PERFORMED: Left reverse total shoulder arthroplasty. SURGEON: Larry Freire MD ANESTHESIOLOGIST: Nasir Hay MD ANESTHESIA: General anesthetic plus block. RADON INSPECTOR: Paloma Aguilar PA-C INDICATIONS FOR PROCEDURE: The patient is a 69-year-old female who is having pain and difficulties lifting her arm. She has a full-thickness rotator cuff tear and subsequent rotator cuff tear arthropathy. We discussed the pros and cons, risks and benefits of non-operative versus surgical management in the form of a reverse shoulder arthroplasty. She wished to go ahead. I marked the left upper extremity and proceeded to surgery after a preoperative block was performed. DESCRIPTION OF PROCEDURE: The patient was brought to the operating room theatre where we administered general anesthetic. She was placed supine in the beach chair position with the SPIDER arm pena to the left side. All bony prominences were appropriate padded. Face mask and eye protection were used. Jj Hugger was employed. Sequential compression devices (SCDs) used on the legs. Right arm placed in the arm pena. The patient sat up at 45-degree angle, was prepped and draped in the usual sterile fashion allowing over three minutes for the chlorhexidine-based prep solution to thoroughly dry. Appropriate time-out was performed to confirm the correct patient and surgery. 35 patient and surgery. The patient had received 2 grams of intravenous (IV) Ancef and 2 grams of IV tranexamic prior to the start of the case. I began by making a standard deltopectoral incision. I carried the dissection down through the skin and subcutaneous, achieving meticulous hemostasis. Unfortunately, the saphenous vein was injured in its mid-substance and this had to be ligated with 2-0 Vicryl sutures. I inserted the Ball shoulder retractor. I incised the lateral aspect of the conjoint tendon and tracked this medially. I ligated the anterior humeral circumflex vessels. I identified the biceps tendon. I performed biceps tenotomy and tenodesis using a #2 FiberWire suture. I performed a subscapularis peel-type tenotomy and placed eight sutures, three of them with #2 FiberWire suture. I released the capsule from the inferior humeral neck. I externally rotated the distal head of the humerus and I used the starting Awl and then the intramedullary cutting guide. I performed my cut at 20 degrees retroversion in-line with the cut guide in-line with the arm. The intramedullary guide was removed and head cut completed. I then turned my attention to the glenoid. I used four-tip retractors as well as anterior glenoid retractors to achieve visualization. I removed the labrum and the remaining biceps tendon stump circumferentially from around the glenoid. I placed the center peg center-center. I used the standard sized SR efface reamer to ream down to bleeding surface of bone. I then used the center peg drill SR. This was thoroughly irrigated. Bone quality was good. I used the flexible drill guide to insert an inferior and superior screw with the superior screw aiming towards the base of the coracoid. The inferior and superior screws were both 6.5 mm screws in diameter and both measured 25 mm in length. The superior screw achieved a very solid bite and inferior a moderate bite. Then the base plate was tapped into place using the impactor prior to screw insertion and this was stable and solid. I then again irrigated the base plate. I used the size 36 mm eccentric glenosphere. This was impacted into place and the central screw placed in the standard fashion for the Maxwell reverse total shoulder glenosphere component. I then turned my attention back to the humeral side. I sequentially broached up to a size 17. This achieved good bite with rotational and superior-inferior stability. This was appropriately seated town and a finger-type guide was then inserted. Reverse cutting reamer was then used and ensured to be appropriately down. The trial and broach were then removed. The canal was thoroughly irrigated. Final implant was assembled on the back table at this time with a standard size body. I then made drill holes at the subscapularis insertion one superior and one inferior and passed #2 FiberWire suture in a loop configuration to be passed behind the implant. The implant was then impacted into place to secure the sutures for future repair of the subscapularis tendon. This was impacted at 20 degrees standard retroversion. I then trialed with standard size cup. This achieved good stability; however, I did go up on the size to a +3 mm and this achieved better stability. I tried to trial with a +6 mm, although this was not possible to be reduced. The trial was removed, the body was thoroughly irrigated, and final implant +3 mm was then impacted into place. The shoulder was reduced. Final stability assessed. This was stable in extension and flexion with the hand able to get to the mouth and external rotation to at least 30 degrees. No obvious shuck. Conjoint tendon under appropriate tension and unable to dislocate even with manual pressure. Wound was thoroughly irrigated. Subscapularis tenotomy was fixed using crisscross-type mattress sutures and reinforced with the previously placed #2 FiberWire stay sutures again in a mattress configuration. The repair was stable and solid all the way out to 30 degrees of external rotation. I closed the deltopectoral fascia with 1-Vicryl sutures. Subcutaneous tissue was closed with interrupted 2-0 Vicryl suture. Twenty mL of Exparel with 20 mL of saline were then mixed up and infiltrated in and around the subcutaneous tissues. The skin was cleaned with wet-to-dry dressing followed by application of Prineo wound dressing in standard fashion. Gauze with cloth tape and ABD dressing were placed over top of this. The patients upper extremity was placed into a sling and the arm kept on the abdomen. The patient was awakened from general anesthetic, transferred off the operating table, and taken to the post-anesthetic unit in stable condition. All sponge count, needle count, instrument counts were correct. COMPLICATIONS: None. ESTIMATED BLOOD LOSS: 150 mL. PLAN: Patient is to be admitted to the hospital for one day and discharged home in the morning. She will follow-up in the office in two weeks time and leave the Prineo on until it falls off and may shower after that and pat it dry. The school psychologist assistant was instrumental in holding retractors, achieving visualization, and completing the case. PEEWEE
== END 2019-11-07 08:00 | disposition home or self-care (01) | DRG 483 ==
LOC: M MS5PR 10:03
PROVIDERS: ADMIT Orthopaedic Surgery Sports Medicine; ATTEND Orthopaedic Surgery Sports Medicine
PROC: 0RRK00Z Replacement of Left Shoulder Joint with Reverse Ball and Socket Synthetic Substitute, Open Approach (ICD-10-PCS; principal; 2019-11-06)
DX: M75.102 Unspecified rotator cuff tear or rupture of left shoulder, not specified as traumatic (principal); J45.909 Unspecified asthma, uncomplicated; I10 Essential (primary) hypertension; K21.9 Gastro-esophageal reflux disease without esophagitis; M19.012 Primary osteoarthritis, left shoulder

== ENCOUNTER → 2019-12-25 | Outpatient (REF) | payer MEDICARE ==
[~2019-12-25] MED LIST changes: -ACETAMINOPHEN 1000MG 100ML IV BTL (OFIRMEV) (J0131 PER 10MG) ONE; -BUPIVACAINE LIPOSOME/PF 1.3% 20ML VIAL (13.3MG/ML)(EXPAREL)(C9290 PER1MG) ONE; -LIDOCAINE 2% 100MG/5ML SDV (FOR ANES.) ONE; -METOCLOPRAMIDE INJ 10MG/2ML VIAL (J2765 PER 1) ONE; -MIDAZOLAM INJ 2MG/2ML VIAL (J2250 PER 1MG) ONE; -ONDANSETRON 4MG/2ML VIAL ONE; -PHENYLEPHRINE 10MG/ML 1ML VIAL (J2370 PER 1) ONE; -PHENYLephrine HCL 500 MCG/5 ML (100MCG/ML) SYRINGE (J2370) ONE; -ROCURONIUM BROMIDE 50 MG/5 ML VIAL ONE; -SUGAMMADEX SODIUM 500 MG/5 ML VIAL (BRIDION) ONE; -TRANEXAMIC ACID 100 MG/ML 10ML VIAL ONE; -ceFAZolin 2 GM/D5W 50 ML IV BAG (J0690 PER 500MG) ONE; -dexameTHASONE 4 MG/ML 1ML VIAL (J1100 PER 1MG) ONE; -ePHEDrine SULFATE 25 MG/5 ML(5MG/ML) SYRINGE ONE; -fentaNYL 100 MCG/2 ML INJECTION (J3010) ONE; -fentaNYL 250 MCG/5 ML INJECTION (J3010) ONE; -propofoL 200 MG/20 ML VIAL ONE
[2019-12-28 14:04] LABS: APPEARANCE, URINE CLOUDY (CLEAR); BACTERIA, URINE AUTO NEGATIVE (NEGATIVE); BILIRUBIN, URINE AUTO NEGATIVE (NEGATIVE); BLOOD, URINE BLOOD 3+ (NEGATIVE); CALCIUM OXALATE CRYSTALS SMALL; COLOR, URINE YELLOW (YELLOW); GLUCOSE, URINE (UA) AUTO NEGATIVE (NEGATIVE); KETONE, URINE AUTO NEGATIVE (NEGATIVE); LEUKOCYTE ESTERASE, URINE AUTO 3+ (NEGATIVE); MUCUS, URINE SMALL (NEGATIVE); NITRITE, URINE AUTO NEGATIVE (NEGATIVE); PROTEIN, URINE AUTO 1+ mg/dL (NEGATIVE); RBC, URINE AUTO TNTC /HPF (0-3); SPECIFIC GRAVITY URINE AUTO 1.019 (1.002-1.035); SQUAMOUS EPITHELIAL CELL UR AU 0 /HPF (0-6); UROBILINOGEN, URINE AUTO 0.2 mg/dL (0.0-2.0); WBC, URINE AUTO TNTC /HPF (0-3)
== END ==
LOC: M LAB REF 12:40
PROVIDERS: ATTEND Obstetrics & Gynecology
DX: Z87.440 Personal history of urinary (tract) infections (principal)

== ENCOUNTER → 2020-01-19 | Outpatient (REF) | payer MEDICARE ==
[2020-01-19 18:24] LABS: APPEARANCE, URINE HAZY (CLEAR); BACTERIA, URINE AUTO NEGATIVE (NEGATIVE); BILIRUBIN, URINE AUTO NEGATIVE (NEGATIVE); BLOOD, URINE BLOOD NEGATIVE (NEGATIVE); COLOR, URINE YELLOW (YELLOW); GLUCOSE, URINE (UA) AUTO NEGATIVE (NEGATIVE); KETONE, URINE AUTO NEGATIVE (NEGATIVE); LEUKOCYTE ESTERASE, URINE AUTO NEGATIVE (NEGATIVE); MUCUS, URINE SMALL (NEGATIVE); NITRITE, URINE AUTO NEGATIVE (NEGATIVE); PROTEIN, URINE AUTO NEGATIVE (NEGATIVE); RBC, URINE AUTO 2 /HPF (0-3); SPECIFIC GRAVITY URINE AUTO 1.006 (1.002-1.035); SQUAMOUS EPITHELIAL CELL UR AU 0 /HPF (0-6); UROBILINOGEN, URINE AUTO 0.2 mg/dL (0.0-2.0); WBC, URINE AUTO 0 /HPF (0-3)
== END ==
LOC: M LAB REF 16:37
PROVIDERS: ATTEND Obstetrics & Gynecology
DX: Z87.440 Personal history of urinary (tract) infections (principal)

== ENCOUNTER → 2020-05-26 | Outpatient (CLI) | payer MEDICARE ==
--- NOTE | 2020-05-26 12:00 | REP ---
INDICATION: F/U. COMPARISON: None. TECHNIQUE: Four views left shoulder. FINDINGS: Metallic prosthesis is noted in the proximal left humerus and there is a prosthesis in the glenoid. No abnormal lucency is seen at the interface with bone. No acute fracture or dislocation is seen. Mild spurring at the acromioclavicular joint. IMPRESSION: Total left shoulder arthroplasty in good position with no associated osseous abnormalities. Mild spurring AC joint. <Electronically signed by Reilly Batista > 05/26/20 [id number]
== END ==
LOC: M SOG 09:35
PROVIDERS: ATTEND Orthopaedic Surgery Sports Medicine
DX: Z47.1 Aftercare following joint replacement surgery (principal); Z96.612 Presence of left artificial shoulder joint

== ENCOUNTER → 2020-07-18 | Outpatient (CLI) | payer MEDICARE ==
--- NOTE | 2020-07-18 11:47 | REP ---
INDICATION: PAIN. COMPARISON: None. TECHNIQUE: Internal rotation, external rotation, axillary and Y-view of the right shoulder FINDINGS: Generalized age-related osteopenia noted. Cortical irregularity and spurring at the acromioclavicular joint along with somewhat irregular fraying and contour to the glenoid rim. Subacromial space is normal. No periarticular loose bodies or calcifications identified. No evidence for acute fracture or dislocation. IMPRESSION: Osteopenia and moderate arthritic changes at the acromioclavicular joint and glenoid. <Electronically signed by Miguel Ángel Zafar > 07/18/20 [id number]
--- NOTE | 2020-07-18 11:48 | REP ---
INDICATION: A. COMPARISON: None. TECHNIQUE: Two views of the right humerus. FINDINGS: Visualized portions of the humerus demonstrate age-related osteopenia and degenerative changes. No acute fracture or dislocation. No obvious healed injury. Distal humerus and elbow are excluded from radiographic evaluation. IMPRESSION: Generalized age-related osteopenia and degenerative changes. <Electronically signed by Miguel Ángel Zafar > 07/18/20 [id number]
== END ==
LOC: M SOG 08:32
PROVIDERS: ATTEND Orthopaedic Surgery Sports Medicine
DX: M75.41 Impingement syndrome of right shoulder (principal); M19.011 Primary osteoarthritis, right shoulder; M85.811 Other specified disorders of bone density and structure, right shoulder

== ENCOUNTER → 2020-08-19 | Outpatient (CLI) | payer MEDICARE ==
[~2020-08-19] MED LIST changes: +D31000TA2 PO; +LORA-674 PO
== END ==
LOC: M LABSMTC 10:18
PROVIDERS: ATTEND Anesthesiology
DX: Z20.828 Contact with and (suspected) exposure to other viral communicable diseases (principal); Z11.59 Encounter for screening for other viral diseases

== ENCOUNTER 2020-08-24 09:13 | Day surgery (SDC) | payer MEDICARE, BC ==
[~2020-08-24] VITALS: Ht 157.5 cm; Wt 83.4 kg
[~2020-08-24 09:13] MED LIST changes: +NS 1,000 ML IV ONE
[2020-08-24] MEDS ORDERED: propofoL 200 MG/20 ML VIAL As Ordered ONE ×2 (10:21→10:47)
[2020-08-24] MEDS ORDERED: LIDOCAINE 2% 100MG/5ML SDV (FOR ANES.) As Ordered ONE (10:21)
[2020-08-24] MEDS ORDERED: fentaNYL 100 MCG/2 ML INJECTION (J3010) As Ordered ONE (10:22)
--- NOTE | 2020-08-24 10:46 | ROOR ---
Patient Name: Coco Gutierrez Procedure Date: 08/24/2020 10:28 AM Date of : 1950 Age: 70 Room: [facility] Gender: Female Note Status: Finalized Procedure: Upper Endoscopy + Biopsies Indications: Heartburn, Exclusion of Gonzales's esophagus Providers: Levi Ambrose MD Referring MD: Real Ho MD Requesting Provider: Medicines: Monitored Anesthesia Care Complications: No immediate complications. Procedure: Pre-Anesthesia Assessment: - The heart rate, respiratory rate, oxygen saturations, blood pressure, adequacy of pulmonary ventilation, and response to care were monitored throughout the procedure. The Endoscope was introduced through the mouth, and advanced to the second part of duodenum. The upper GI endoscopy was accomplished without difficulty. The patient tolerated the procedure well. Findings: The Z-line was irregular and was found 39 cm from the incisors. Multiple biopsies were obtained with cold forceps for evaluation to rule out Gonzales's Esophagus randomly at the gastroesophageal junction. A small hiatal hernia was present. Multiple small pedunculated and sessile polyps with no stigmata of recent bleeding were found on the greater curvature of the stomach. Biopsies were taken with a cold forceps for Helicobacter pylori testing. The exam of the duodenum was otherwise normal. Impression: - Z-line irregular, 39 cm from the incisors. - Small hiatal hernia. - Multiple gastric polyps. Biopsied. - Multiple biopsies were obtained at the gastroesophageal junction. - The examination was otherwise normal. Recommendation: - Patient has a contact number available for emergencies. The signs and symptoms of potential delayed complications were discussed with the patient. Return to normal activities tomorrow. Written discharge instructions were provided to the patient. - Discharge patient to home. - Continue present medications. - Await pathology results. - Telephone GI clinic for pathology results in 1 week. - Return to referring physician. - The findings and recommendations were discussed with the patient's family. Procedure Code(s): --- Professional --- 59897, Esophagogastroduodenoscopy, flexible, transoral; with biopsy, single or multiple Diagnosis Code(s): --- Professional --- K22.8, Other specified diseases of esophagus K44.9, Diaphragmatic hernia without obstruction or gangrene K31.7, Polyp of stomach and duodenum R12, Heartburn CPT copyright 2019 [employer]. All rights reserved. The codes documented in this report are preliminary and upon underwriting account representative review may be revised to meet current compliance requirements. Levi Ambrose MD Levi Ambrose MD 08/24/2020 10:46:12 AM Electronically signed by Levi Ambrose MD Number of Addenda: 0 Note Initiated On: 08/24/2020 10:28 AM Estimated Blood Loss: Estimated blood loss: none.
--- NOTE | 2020-08-24 11:03 | ROOR ---
Patient Name: Coco Gutierrez Procedure Date: 08/24/2020 10:29 AM Date of : 1950 Age: 70 Room: [facility] Gender: Female Note Status: Finalized Procedure: Total Colonoscopy to Cecum + Cold Snare Polypectomy Indications: High risk colon cancer surveillance: Personal history of colonic polyps, Last colonoscopy: 2017 Providers: Levi Ambrose MD Referring MD: Real Ho MD Requesting Provider: Medicines: Monitored Anesthesia Care Complications: No immediate complications. Procedure: Pre-Anesthesia Assessment: - The heart rate, respiratory rate, oxygen saturations, blood pressure, adequacy of pulmonary ventilation, and response to care were monitored throughout the procedure. The Colonoscope was introduced through the anus and advanced to the cecum, identified by appendiceal orifice and ileocecal valve. The colonoscopy was performed without difficulty. The patient tolerated the procedure well. The quality of the bowel preparation was excellent. Findings: The perianal and digital rectal examinations were normal. Non-bleeding internal hemorrhoids were found during retroflexion. The hemorrhoids were small and Grade I (internal hemorrhoids that do not prolapse). A diminutive polyp was found at 30 cm proximal to the anus. The polyp was sessile. The polyp was removed with a cold snare. Resection and retrieval were complete. The exam was otherwise without abnormality on direct and retroflexion views. Impression: - Non-bleeding internal hemorrhoids. - One diminutive polyp at 30 cm proximal to the anus, removed with a cold snare. Resected and retrieved. - The examination was otherwise normal on direct and retroflexion views. - The exam was otherwise normal to the cecum. Recommendation: - Patient has a contact number available for emergencies. The signs and symptoms of potential delayed complications were discussed with the patient. Return to normal activities tomorrow. Written discharge instructions were provided to the patient. - High fiber diet. - Discharge patient to home. - Continue present medications. - Await pathology results. - Telephone GI clinic for pathology results in 1 week. - Repeat colonoscopy is not recommended due to current age (66 years or older) for surveillance. - Return to referring physician. - The findings and recommendations were discussed with the patient's family. Procedure Code(s): --- Professional --- 06776, Colonoscopy, flexible; with removal of tumor(s), polyp(s), or other lesion(s) by snare technique Diagnosis Code(s): --- Professional --- Z86.010, Personal history of colonic polyps K64.0, First degree hemorrhoids K63.5, Polyp of colon CPT copyright 2019 [employer]. All rights reserved. The codes documented in this report are preliminary and upon board of education secretary review may be revised to meet current compliance requirements. Levi Ambrose MD Levi Ambrose MD 08/24/2020 11:03:06 AM Electronically signed by Levi Ambrose MD Number of Addenda: 0 Note Initiated On: 08/24/2020 10:29 AM Estimated Blood Loss: Estimated blood loss: none.
[2020-08-24 11:29] VITALS: BP 140/68
== END 2020-08-24 11:32 | disposition home or self-care (01) ==
LOC: M OPP 09:13
PROVIDERS: ATTEND Internal Medicine Gastroenterology
DX: Z12.11 Encounter for screening for malignant neoplasm of colon (principal); Z86.010 Personal history of colon polyps; K64.0 First degree hemorrhoids; K63.5 Polyp of colon; R12 Heartburn; K22.8 Other specified diseases of esophagus; K31.7 Polyp of stomach and duodenum; K44.9 Diaphragmatic hernia without obstruction or gangrene
CPT/HCPCS: 43239; 45385; 88305; J3010

== ENCOUNTER → 2020-10-04 | Outpatient (CLI) | payer MEDICARE, BC ==
[~2020-10-04] MED LIST changes: -NS 1,000 ML IV ONE
--- NOTE | 2020-10-04 09:50 | REPVR ---
PROCEDURE INFORMATION: Exam: CT Maxillofacial Without Contrast, Sinus Exam date and time: 10/04/2020 9:07 AM Age: 70 years old Clinical indication: Other: Sinusitis TECHNIQUE: Imaging protocol: CT Maxillofacial without contrast. Focus on the sinuses. Radiation optimization: All CT scans at this facility use at least one of these dose optimization techniques: automated exposure control; mA and/or kV adjustment per patient size (includes targeted exams where dose is matched to clinical indication); or iterative reconstruction. COMPARISON: CR Spine,Cervical 2 or 3 views 02/02/2019 1:00 PM FINDINGS: Frontal sinuses: There is mild mucosal thickening along the floors of the frontal sinuses. No air-fluid levels. Ethmoid air cells: There are partial ethmoidectomy changes There is mild ethmoid mucosal thickening. No air-fluid levels. Sphenoid sinuses: Normal. No air-fluid levels. Maxillary sinuses: There are maxillary antrostomy changes. There is minimal mucosal thickening along the floors of the maxillary sinuses. No air-fluid levels. Ostiomeatal units are patent. Nasal cavity/Septum: Unremarkable. Orbital cavity: Orbits are normal. Globes are unremarkable. Bones/joints: Unremarkable. Soft tissues: Unremarkable. IMPRESSION: Mild sinus mucosal disease. Electronically signed by: Tatyana Meek On 10/04/2020 09:49:44 AM
== END ==
LOC: M RAD 08:52
PROVIDERS: ATTEND Otolaryngology
DX: J32.9 Chronic sinusitis, unspecified (principal)

== ENCOUNTER → 2020-12-20 | Outpatient (CLI) | payer MEDICARE, BC ==
--- NOTE | 2020-12-20 11:43 | REP ---
INDICATION: ORTHOPEDIC AFTERCARE. COMPARISON: 05/26/2020. TECHNIQUE: Five views left shoulder. FINDINGS: Total left shoulder arthroplasty is unchanged in position. Osseous structures are well-aligned and intact. No acute osseous changes seen. There is mild spurring at the acromioclavicular joint. IMPRESSION: Stable exam. <Electronically signed by Reilly Batista > 12/20/20 [id number]
== END ==
LOC: M SOG 11:02
PROVIDERS: ATTEND Orthopaedic Surgery Sports Medicine
DX: Z47.89 Encounter for other orthopedic aftercare (principal)

== ENCOUNTER → 2021-02-01 | Outpatient (REF) | payer MEDICARE, BC ==
[2021-02-01 18:36] LABS: APPEARANCE, URINE HAZY (CLEAR); BACTERIA, URINE AUTO NEGATIVE (NEGATIVE); BILIRUBIN, URINE AUTO NEGATIVE (NEGATIVE); BLOOD, URINE BLOOD NEGATIVE (NEGATIVE); COLOR, URINE YELLOW (YELLOW); GLUCOSE, URINE (UA) AUTO NEGATIVE (NEGATIVE); KETONE, URINE AUTO NEGATIVE (NEGATIVE); LEUKOCYTE ESTERASE, URINE AUTO NEGATIVE (NEGATIVE); NITRITE, URINE AUTO NEGATIVE (NEGATIVE); PROTEIN, URINE AUTO NEGATIVE (NEGATIVE); RBC, URINE AUTO 0 /HPF (0-3); SPECIFIC GRAVITY URINE AUTO 1.015 (1.002-1.035); SQUAMOUS EPITHELIAL CELL UR AU 0 /HPF (0-6); UROBILINOGEN, URINE AUTO 0.2 mg/dL (0.0-2.0); WBC, URINE AUTO 1 /HPF (0-3)
== END ==
LOC: M LAB REF 17:12
PROVIDERS: ATTEND Obstetrics & Gynecology
DX: R31.9 Hematuria, unspecified (principal)

== ENCOUNTER → 2023-02-04 | Outpatient (CLI) | payer MEDICARE ==
[~2023-02-04] MED LIST changes: -D31000TA2 PO; +LORA-1041 PO; -LORA-674 PO; +LOSA50TA28 PO; -LOSA50TA88 PO; +VITA100093 PO
== END ==
LOC: M RAD 15:15
PROVIDERS: ATTEND Orthopaedic Surgery
DX: Z47.1 Aftercare following joint replacement surgery (principal); Z96.651 Presence of right artificial knee joint; M79.661 Pain in right lower leg

== ENCOUNTER 2024-10-07 10:44 | Day surgery (SDC) | payer MEDICARE ==
[~2024-10-07] VITALS: Ht 157.5 cm; Wt 84.4 kg
[~2024-10-07 10:44] MED LIST changes: +ALBU8.5H INH; +LEXA1TAB PO; +LIDO1ADH93 TD; -LIDO5DIS41 TD; +LOSA25TA13 PO
[2024-10-07 13:17] VITALS: TEMP 97.4
[2024-10-07 13:38] VITALS: BP 119/60; O2SAT 94
== END 2024-10-07 13:43 | disposition home or self-care (01) ==
LOC: M OPP 10:44
PROVIDERS: ATTEND Internal Medicine Gastroenterology
DX: K64.0 First degree hemorrhoids (principal); K57.30 Diverticulosis of large intestine without perforation or abscess without bleeding; Z86.0100 Personal history of colon polyps, unspecified; K22.89 Other specified disease of esophagus; K44.9 Diaphragmatic hernia without obstruction or gangrene; K31.7 Polyp of stomach and duodenum; K31.89 Other diseases of stomach and duodenum; R12 Heartburn; Z88.8 Allergy status to other drugs, medicaments and biological substances; Z91.048 Other nonmedicinal substance allergy status; Z79.899 Other long term (current) drug therapy; Z87.891 Personal history of nicotine dependence
CPT/HCPCS: 43239; 45378; 88305; J3010